=== PATIENT | female | born 1930 | race Caucasian/White ===

== ENCOUNTER 2016-06-12 09:21 | Day surgery (SDC) | payer MEDICARE, BC ==
--- OUTSIDE RECORDS SUMMARY | 2016-06-12 09:29 | XMS REPORT | Continuity of Care Document ---
:1930 Author Organization [facility] ([facility]) Address [address] [place] [address] Phone [phone] Care Team Providers Name Role Phone Unavailable Primary Care Provider Unavailable Source Comments This disclosure is being made pursuant to the Care Everywhere program, applicable federal and state laws, and may not contain all informaitonavailable regarding this patient.[facility] ([facility]) Active Allergies and Adverse Reactions Not on File Current Medications Not on file Active Problems Not on file Social History Tobacco Use Types Packs/Day Years Used Date Never Assessed Plan of Care Health Maintenance Due Date Last Done Comments Hepatitis B Vaccine (1 of 3 - Primary Series) 1930 Tdap Vaccine 1941 Lipid Disorder Screening 1948 Td Vaccine 1948 Colonoscopy 06/06/1980 Zoster Vaccine 1990 Osteoporosis Screening (DXA Bone Density) 06/08/1995 Pneumococcal Vaccine (1 of 2 - PCV13) 06/08/1995 Influenza Vaccine: Seasonal (#1) 09/23/2015 Results from Last 3 Months Not on file
--- NOTE | 2016-06-12 10:26 | OR ---
Anesthesia Pre Procedure Eval Date of Service: 06/12/16 Pre Procedure Evaluation: Last Vital Signs Temp 36.5 C 06/12/16 10:21 Pulse 71 06/12/16 10:21 Resp 18 06/12/16 10:21 BP 160/79 06/12/16 10:21 Pulse Ox 100 06/12/16 10:21 Anesthesia Pre Procedure Evaluation DATE: 06/12/2016 TIME: 1025 INDICATIONS: Low back and radicular pain PAST MEDICAL HISTORY: has had a long history of pain she has tried multimodal therapies with some relief however she occasionally reaches a point where an epidural injection appears to be the only longer-term relief intervention. She's been doing fairly well until recently. The pain is described in the back and radiating down the legs. EXAM: Heart S1 and S2 regular; lungs clear but distant bilaterally ASSESSMENT OF MEDICAL STATUS: Appropriate candidate for epidural steroid injection PLANNED PROCEDURE: Epidural injection with steroid in the lumbar area. Home Medications: HOME MEDICATIONS Albuterol Sulfate [Proair Hfa] 2 puff IH Q4H PRN 10/12/14 [Last Taken Unknown] Aspirin [Aspirin EC] 81 mg PO DAILY 10/12/14 [Last Taken Unknown] Atorvastatin Calcium 20 mg PO DAILY 10/12/14 [Last Taken Unknown] Gabapentin [Neurontin] 600 mg PO HS 10/12/14 [Last Taken Unknown] LORazepam [Ativan] 1 mg PO TID PRN 10/12/14 [Last Taken Unknown] Nebivolol HCl [Bystolic] 5 mg PO DAILY 10/12/14 [Last Taken Unknown] Omeprazole [Prilosec] 20 mg PO DAILY 10/12/14 [Last Taken Unknown] Polyethylene Glycol 3350 [Miralax] 17 gm PO DAILY 10/12/14 [Last Taken Unknown] Pyridoxine HCl (Vitamin B6) [Vitamin B-6] 100 mg PO BID 10/12/14 [Last Taken Unknown] Tolterodine Tartrate [Detrol LA] 2 mg PO DAILY 10/12/14 [Last Taken Unknown] traMADol HCL [Ultram] 50 mg PO QID PRN #30 tablet 08/21/15 [Last Taken Unknown] Albuterol Sulfate [Albuterol Sulfate 2.5 MG/3 ML] 2.5 mg IH TID PRN 06/10/16 [ Last Taken Unknown] Azithromycin [Zithromax] 500 mg PO DAILY 06/10/16 [Last Taken Unknown] Cyanocobalamin [Vitamin B-12] 1,000 mcg PO DAILY 06/10/16 [Last Taken Unknown] Fluticasone Propionate [Flonase] 1 spray NS BID 06/10/16 [Last Taken Unknown] Fluticasone Propionate [Flovent Hfa] 2 inh IH BID 06/10/16 [Last Taken Unknown] Furosemide [Lasix] 20 mg PO DAILY 06/10/16 [Last Taken Unknown] Levalbuterol Tartrate [Xopenex Hfa] 2 puff IH Q4H PRN 06/10/16 [Last Taken Unknown] Mirtazapine [Mirtazapine (Remeron)] 15 mg PO HS 06/10/16 [Last Taken Unknown] Montelukast Sodium [Singulair] 10 mg PO DAILY 06/10/16 [Last Taken Unknown] Umeclidinium [place] [Incruse Ellipta] 1 puff IH DAILY 06/10/16 [Last Taken Unknown]
[2016-06-12] MEDS ORDERED: LIDOCAINE HCL/PF 5 ML VIAL IJ ONE ×2 (10:55→11:15)
[2016-06-12] MEDS ORDERED: DEXAMETHASONE SOD PHOSPHATE 10 MG/ML VIAL IJ ONE ×2 (10:55→11:15)
[2016-06-12] MEDS ORDERED: IOPAMIDOL 20 ML VIAL IJ ONE ×2 (10:55→11:15)
--- NOTE | 2016-06-12 11:35 | OR ---
Anesthesia Procedure Note - Anesthesia Procedure Note Date of Service: 06/12/16 Narrative: Vital Signs - Last Taken Temp 36.5 C 06/12/16 10:21 Pulse 71 06/12/16 10:21 Resp 18 06/12/16 10:21 BP 160/79 06/12/16 10:21 Pulse Ox 100 06/12/16 10:21 06/12/16 1125 ANESTHESIA PROCEDURE NOTE Date of Procedure: 06/12/2016 Time of procedure: 11:00. Performed by: AVA Wiggins CRNAP, MSN Stunt Person: Janet Sifuentes RN. Preprocedure diagnosis: Multilevel degenerative disc disease, spinal stenosis, low back and bilateral radicular pain. Post procedure diagnosis: Same. Procedure: Epidural Steroid Injection L2-3. Indications: Low back and bilateral radicular pain. Findings: See below. Details of the procedure: After the MRI report and films were reviewed, the patient was interviewed where risks and the procedure were explained. The patient was then brought to or #3 and was placed in the prone position. The back was prepped with DuraPrep and draped in a sterile fashion. The lumbar area was identified under fluoroscopy and the L4 5 right space was localized with 1% lidocaine solution. After multiple passes with apparent appropriate approach to the epidural space loss of resistance was not achieved, see single view with no contrast. The left L2-3 approach was then utilized achieving a [id number] using a 20-gauge epidural needle, and 1 mL of Isovue 200 was injected. The C-arm was positioned in the lateral orientation demonstrating epidural spread. The C-arm was then readjusted to an AP view and Isovue 200 2 milliliters was injected demonstrating a spread at the affected area there was some lateral spread but confined primarily centrally. There was transient bilateral pressure parasthesias on injection. Dexamethasone 10mg and lidocaine 1 % [5ml] was injected, stylette was replaced and the epidural needle removed. A Band-Aid was then applied to the injection site, patient was placed in a [supine ] position for 5 minutes then returned to ASU with good relief of pain, from a [ 8]/10 to [0]/10. EBL: None. Energy: [45] Seconds, [13.18]mGy Fluids: N/A. Specimen: N/A. Post procedure condition: The patient tolerated the procedure well. No complications were noted. Thank you for this consultation. Zane Villalba CRNA, MSN, TRANSFER CLERK
[2016-06-12 12:02] VITALS: BP 141/73
== END 2016-06-12 09:22 | disposition home or self-care (01) ==
LOC: AMB 09:21
PROVIDERS: ATTEND Family Medicine
PROC: 3E0S3BZ Introduction of Anesthetic Agent into Epidural Space, Percutaneous Approach (ICD-10-PCS; 2016-06-12)
PROC: 3E0S33Z Introduction of Anti-inflammatory into Epidural Space, Percutaneous Approach (ICD-10-PCS; principal; 2016-06-12 10:00)
DX: M51.36 Other intervertebral disc degeneration, lumbar region (principal); M48.06 Spinal stenosis, lumbar region; Z68.28 Body mass index [BMI] 28.0-28.9, adult

== ENCOUNTER 2017-01-25 10:14 | Observation (INO) | payer MEDICARE, BC ==
[2017-01-25] MEDS ORDERED: ALBUTEROL SULFATE/IPRATROPIUM 3 ML NEBU IH ONE ×2 (10:22→11:08)
[2017-01-25] MEDS ORDERED: FUROSEMIDE 10 MG/ML VIAL IV ONE (10:23)
[2017-01-25] MEDS ORDERED: METHYLPREDNISOLONE SOD SUCC/PF 40 MG/ML VIAL IV ONE (10:24)
--- NOTE | 2017-01-25 10:31 | ERNOTE ---
Dyspnea - Date Date of Service: 01/25/17 - General Presenting Symptoms: shortness of breath Time Seen by Provider: 01/25/17 10:22 Source: patient Exam Limitations: no limitations - Immun/Allergies/Home Medications Immunizations: IMMUNIZATION HX History of Influenza Vaccine No Hx Pneumococcal Vaccination Yes Allergies/Adverse Reactions: Allergies cefdinir [From Omnicef] Allergy (Mild, Verified 01/25/17 10:25) hives, palpitations Penicillins Allergy (Mild, Verified 01/25/17 10:25) Hives doxycycline Adverse Reaction (Mild, Verified 01/25/17 10:25) rash, itching levofloxacin [From Levaquin] Adverse Reaction (Mild, Verified 01/25/17 10:25) gi upset, pain Home Medications: HOME MEDICATIONS Albuterol Sulfate [Proair Hfa] 2 puff IH Q4H PRN 10/12/14 [Last Taken Unknown] Aspirin [Aspirin EC] 81 mg PO DAILY 10/12/14 [Last Taken Unknown] Atorvastatin Calcium 20 mg PO DAILY 10/12/14 [Last Taken Unknown] Gabapentin [Neurontin] 600 mg PO HS 10/12/14 [Last Taken Unknown] LORazepam [Ativan] 1 mg PO TID PRN 10/12/14 [Last Taken 06/12/16 08:00] Nebivolol HCl [Bystolic] 5 mg PO DAILY 10/12/14 [Last Taken 06/12/16 08:00] Omeprazole [Prilosec] 20 mg PO DAILY 10/12/14 [Last Taken Unknown] Polyethylene Glycol 3350 [Miralax] 17 gm PO DAILY 10/12/14 [Last Taken Unknown] Pyridoxine HCl (Vitamin B6) [Vitamin B-6] 100 mg PO BID 10/12/14 [Last Taken Unknown] Tolterodine Tartrate [Detrol LA] 2 mg PO DAILY 10/12/14 [Last Taken Unknown] traMADol HCL [Ultram] 50 mg PO QID PRN #30 tablet 08/21/15 [Last Taken Unknown] Albuterol Sulfate [Albuterol Sulfate 2.5 MG/3 ML] 2.5 mg IH TID PRN 06/10/16 [ Last Taken Unknown] Azithromycin [Zithromax] 500 mg PO DAILY 06/10/16 [Last Taken Unknown] Cyanocobalamin [Vitamin B-12] 1,000 mcg PO DAILY 06/10/16 [Last Taken Unknown] Fluticasone Propionate [Flonase] 1 spray NS BID 06/10/16 [Last Taken Unknown] Fluticasone Propionate [Flovent Hfa] 2 inh IH BID 06/10/16 [Last Taken Unknown] Furosemide [Lasix] 20 mg PO DAILY 06/10/16 [Last Taken Unknown] Levalbuterol Tartrate [Xopenex Hfa] 2 puff IH Q4H PRN 06/10/16 [Last Taken Unknown] Mirtazapine [Mirtazapine (Remeron)] 15 mg PO HS 06/10/16 [Last Taken Unknown] Montelukast Sodium [Singulair] 10 mg PO DAILY 06/10/16 [Last Taken Unknown] Umeclidinium [place] [Incruse Ellipta] 1 puff IH DAILY 06/10/16 [Last Taken Unknown] - History of Present Illness Narrative: Pt. comes in with c/o SOB for two weeks that is worsening and this morning states that she has intermittent headache for the pat hour as well. Pt. states that sitting up decreases the symptoms and lying flat increases them but pt. denies any alleviation of symptoms completely. Pt. has a hx of CHF and COPD but has not taken any lasix or breathing treatmments since yesterday. Review of Systems - Review of Systems Constitutional: Present: weakness - generalized, fatigue. Absent: recent illness, fever, chills, malaise EYE: Present: no symptoms reported ENT: Present: no symptoms reported. Absent: nose pain, nose congestion, nasal drainage, sore throat Respiratory: Present: shortness of breath, cough Cardiology: Present: no symptoms reported. Absent: chest pain, palpitations, edema Gastrointestinal/Abdominal: Present: no symptoms reported. Absent: nausea, vomiting, diarrhea, abdominal pain Genitourinary: Present: no symptoms reported Musculoskeletal: Present: no symptoms reported. Absent: back pain, joint pain Skin: Present: no symptoms reported Neurological: Present: headache. Absent: dizziness/light-headedness, numbness, tingling All Other Systems: All systems neg except as marked - Patient's Past Medical History Patient History - Medical: Anxiety, Depression, GERD, Osteoporosis Patient History - Cancer: No Hx of Cancer Patient History - Surgical Procedures: Back Surgery, Hysterectomy Patient History - Other: None - Immunizations Hx Pneumococcal Vaccination: Yes History of Influenza Vaccine: No Physical Exam - Physical Exam General Appearance: Present: wd/wn, alert, moderate distress, other - tripod breathing Head Exam: Present: normal inspection, no evidence of injury Eye Exam: Normal inspection: bilateral, PERRL: bilateral, EOMI: bilateral Ears, Nose, Throat: Present: normal ENT inspection, normal pharynx Neck: Present: normal inspection, nontender, supple, full range of motion. Absent: lymphadenopathy (R), lymphadenopathy (L) Respiratory: Present: chest nontender, respiratory distress, decreased breath sounds - mid upper to bases, wheezing - BUL, other - very tight sounding chest . Absent: chest tenderness, crackles, rales, rhonchi, stridor Cardiovascular/Chest: Present: regular rate, rhythm, no murmur, normal peripheral pulses Gastrointestinal/Abdominal: Present: normal bowel sounds, nontender, nondistended, soft, no organomegaly Back Exam: Present: normal inspection, normal range of motion, no CVA tenderness , no vertebral tenderness Extremity Exam: Present: normal inspection, non-tender, normal range of motion, no edema Neurological Exam: Present: alert, oriented, normal mood/affect, no motor/ sensory deficits Skin Exam: Present: warm/dry, pallor. Absent: cyanosis, skin rash ED Progress - Date and Time Seen: Date and Time: 01/25/17 13:[address] Mari and as pt. is boarderline and could be discharged or admitted and pt. denies any preference will admit pt. for COPD exacerbation. - Results and Orders Patient's Lab Results:: I have reviewed the patient's lab results. - Vital Signs Patient's Vital Signs:: I have reviewed the patient's vital signs. - EKG EKG: other - SR 1st degree EKG read: Reviewed by me EKG Comments: Interp by Dr garcia - X-Ray X-Ray #1 X-Ray: chest Interpretation: Reviewed by me X-ray Comments: hyperinflation and chronic scarring no consolidation or infiltrates. - Progress/Reassessment Progress:: Improved - slightly Progress Note-Subjective: 01/25/17 13:21 Pt. still not tolerating much activity and gave her morning dose of lasix that she missed and her lung sounds are much improved but pt. states tath she still feel s bad Departure Clinical Impression: COPD exacerbation - Departure Disposition: [facility] Condition: Fair
[2017-01-25 10:45] LABS: Hemoglobin 12.2 gm/dL (12.5-16.0); Mean Cell Volume 96.3 fl (78-100); Mean Corpuscular Hemoglobin 30.1 pg (27-31); Mean Corpuscular Hgb Conc 31.3 g/dl (32-36); Mean Platelet Volume 9.8 fl (6.0-9.5); Neutrophil # 6.5 K/mm3 (1.3-6.0); Neutrophil % 73.6 % (42-75.0); Platelet Count 216 K/mm3 (150-450); Red Blood Count 4.05 M/mm3 (4.2-5.4); Red Cell Distribution Width 12.4 % (11.5-14.0); White Blood Count 8.8 K/mm3 (4.0-10.5)
[2017-01-25 11:01] LABS: Troponin I Less than 0.017 ng/ml (0.00-0.10)
[2017-01-25 11:03] LABS: ALT 28 U/L (19-67); AST 26 U/L (0-48); Albumin * 3.4 gm/dl (3.4-5.0); Alkaline Phosphatase * 75 U/L (50-170); Anion Gap 4.5 mmol/L (6.8-13.8); BNP * 461 pg/mL (5-550); BUN/Creatinine Ratio 12.9 (9.0-21.6); Bilirubin, Total 0.7 mg/dL (0.0-1.1); Blood Urea Nitrogen 11 mg/dL (3-23); Ca. Corrected For Albumin 9.8 mg/dL (8.4-10.2); Calcium * 9.6 mg/dL (7.9-10.9); Carbon Dioxide 42.6 mmol/L (24-32.6); Chloride 93 mmol/L (97-106); Glucose * 128 mg/dL (70-110); Potassium 4.1 mmol/L (3.4-4.6); Sodium 136 mmol/L (132-142); Total Protein 7.7 gm/dL (6.2-8.2)
[2017-01-25] MEDS ORDERED: NORMAL SALINE 1,000 ML IV ONE (11:14)
[2017-01-25] MEDS ORDERED: LORazepam 2 MG/ML DISP.SYRIN IV ONE (12:02)
[2017-01-25] MEDS ORDERED: METHYLPREDNISOLONE SOD SUCC/PF 40 MG/ML VIAL ONE (12:25)
[2017-01-25] MEDS ORDERED: LORazepam 2 MG/ML DISP.SYRIN ONE (12:26)
[2017-01-25] MEDS ORDERED: ALBUTEROL SULFATE 2.5 MG/0.5 ML VIAL.NEB IH PRN ×2 (13:26→18:00)
[2017-01-25] MEDS ORDERED: METHYLPREDNISOLONE SOD SUCC 80 MG in WATER FOR INJ.,BACTERIOSTATIC 0 ML IV SCH ×2 (13:30→19:00)
[2017-01-25] MEDS ORDERED: traMADol HCL 50 MG TABLET PO PRN (16:36)
[2017-01-25] MEDS ORDERED: NON-FORMULARY 1 DOSE DOSE (Levalbuterol Tartrate [Xopenex Hfa] 2 PUFF) IH PRN (16:36)
--- NOTE | 2017-01-25 16:44 | HP ---
Chief Complaint - Chief Complaint Date of Service: 01/25/17 Time of Service: 16:42 Chief Complaint: Shortness of breath, fatigue, hoarseness, sinus headache History of Present Illness: Analisa is an 86yo female that was at home with shortness of breath. reports they have a pulse oximetry and he reports it was 60% at home so he turned up her usual 3lpm of oxygen to 4lpm and it improved to 90% but would jump around to 70% to 90% so he brought her in to the ER for evaluation. She reports she has had lots of headaches, sinus drainage, and feels like there is phlegm in the back of her throat that she cannot clear. Denies sore throat. She does not feel her breathing is worse than usual. In the ER her oxygen was >90% on her usual 3lpm. She reports she has been more anxious. Lorazapam helps but she only takes a half tablet. - Patient's Past Medical History Patient History - Medical: Anxiety, Depression, GERD, Osteoporosis Patient History - Cardiac/Respiratory: COPD, Home O2 Use - Chronic Respiratory Failure 3lpm Patient History - Cancer: No Hx of Cancer Patient History - Surgical Procedures: Back Surgery, Cataracts, Hysterectomy, T & A Patient History - Other: None LMP (females 10-50): Menopausal - Family History Mother Family History - Medical: Family History - Cardiac/Respiratory: No pertinent hx Father Family History - Medical: Family History - Cardiac/Respiratory: Cardiac Arrest - Social History Living Situations: spouse Abuse History: No History of abuse Psych History: Hx of Depression Smoking Status: Current every day smoker Have you smoked in the past 12 months: Yes Do you dip or chew tobacco: No Smoking Start Date: 06/11/1952 Patient requests Smoking Cessation Consult: Yes Initiate information on Smoking Cessation: Yes Alcohol Use: none Drug Use: none - Immunizations Hx Pneumococcal Vaccination: Yes History of Influenza Vaccine: No Review Of Systems (GEN) - Review of Systems Generalized/Overall Review: Absent: Weakness, Chills, Fever EENTM: Present: Nose Congestion, Other - Hoarseness Respiratory: Present: Cough, Shortness of Breath. Absent: Orthopnea, Stridor, Wheezing Cardiac: Absent: Chest Pain, Edema, Palpitations Abdominal: Present: No Symptoms Reported Genitourinary: Present: No Symptoms Reported Musculoskeletal: Present: No Symptoms Reported Neurological: Present: Headache, Anxiety, Depressed Skin: Present: No Symptoms Reported Endocrine: Present: No Symptoms Reported Immunizations: IMMUNIZATION HX History of Influenza Vaccine No Hx Pneumococcal Vaccination Yes Allergies/Adverse Reactions: Allergies Allergy/AdvReac Type Severity Reaction Status Date / Time cefdinir [From Omnicef] Allergy Mild hives, Verified 01/25/17 10:25 palpitations Penicillins Allergy Mild Hives Verified 01/25/17 10:25 doxycycline AdvReac Mild rash, Verified 01/25/17 10:25 itching levofloxacin [From Levaquin] AdvReac Mild gi upset, Verified 01/25/17 10:25 pain Home Medications: HOME MEDICATIONS Albuterol Sulfate [Proair Hfa] 2 puff IH Q4H PRN 10/12/14 [Last Taken Unknown] Aspirin [Aspirin EC] 81 mg PO DAILY 10/12/14 [Last Taken Unknown] Atorvastatin Calcium 20 mg PO DAILY 10/12/14 [Last Taken Unknown] Gabapentin [Neurontin] 600 mg PO HS 10/12/14 [Last Taken Unknown] LORazepam [Ativan] 1 mg PO TID PRN 10/12/14 [Last Taken 06/12/16 08:00] Nebivolol HCl [Bystolic] 5 mg PO DAILY 10/12/14 [Last Taken 06/12/16 08:00] Omeprazole [Prilosec] 20 mg PO DAILY 10/12/14 [Last Taken Unknown] Polyethylene Glycol 3350 [Miralax] 17 gm PO DAILY 10/12/14 [Last Taken Unknown] Pyridoxine HCl (Vitamin B6) [Vitamin B-6] 100 mg PO BID 10/12/14 [Last Taken Unknown] Tolterodine Tartrate [Detrol LA] 2 mg PO DAILY 10/12/14 [Last Taken Unknown] traMADol HCL [Ultram] 50 mg PO QID PRN #30 tablet 08/21/15 [Last Taken Unknown] Albuterol Sulfate [Albuterol Sulfate 2.5 MG/3 ML] 2.5 mg IH TID PRN 06/10/16 [ Last Taken Unknown] Azithromycin [Zithromax] 500 mg PO DAILY 06/10/16 [Last Taken Unknown] Cyanocobalamin [Vitamin B-12] 1,000 mcg PO DAILY 06/10/16 [Last Taken Unknown] Fluticasone Propionate [Flonase] 1 spray NS BID 06/10/16 [Last Taken Unknown] Fluticasone Propionate [Flovent Hfa] 2 inh IH BID 06/10/16 [Last Taken Unknown] Furosemide [Lasix] 20 mg PO DAILY 06/10/16 [Last Taken Unknown] Levalbuterol Tartrate [Xopenex Hfa] 2 puff IH Q4H PRN 06/10/16 [Last Taken Unknown] Mirtazapine [Mirtazapine (Remeron)] 15 mg PO HS 06/10/16 [Last Taken Unknown] Montelukast Sodium [Singulair] 10 mg PO DAILY 06/10/16 [Last Taken Unknown] Umeclidinium [place] [Incruse Ellipta] 1 puff IH DAILY 06/10/16 [Last Taken Unknown] Exam - Exam Vital Signs: Vital Signs - Last Taken Temp 36.4 C L 01/25/17 14:46 Pulse 81 01/25/17 14:46 Resp 20 01/25/17 14:46 BP 168/57 01/25/17 14:46 Pulse Ox 97 01/25/17 14:46 Constitutional: Present: Alert, Oriented x3, Cooperative ENT Exam: Present: hearing grossly normal, muffled/hoarse voice, other - Frontal sinuses tender to palpation bilaterally Eye Exam: bilateral eye: normal inspection Respiratory: Present: decreased breath sounds Cardiovascular/Chest: Present: regular rate, rhythm, no chest tenderness, no edema, no murmur Abdomen: Present: Normal bowel sounds, soft, nontender, nondistended, no rebound tenderness Extremity: Present: normal inspection, no pedal edema Skin Exam: Present: normal color, warm/dry, no cyanosis Neurologic: Present: no motor/sensory deficits, alert, normal mood/affect, oriented x 3 Diagnostic Studies: Laboratory Results WBC 8.8 K/mm3 (4.0-10.5) 01/25/17 10:22 RBC 4.05 M/mm3 (4.2-5.4) L 01/25/17 10:22 Hgb 12.2 gm/dL (12.5-16.0) L 01/25/17 10:22 Hct 39.0 % (37.0-47.0) 01/25/17 10:22 MCV 96.3 fl (78-100) 01/25/17 10:22 MCH 30.1 pg (27-31) 01/25/17 10:22 MCHC 31.3 g/dl (32-36) L 01/25/17 10:22 RDW 12.4 % (11.5-14.0) 01/25/17 10:22 Plt Count 216 K/mm3 (150-450) 01/25/17 10:22 MPV 9.8 fl (6.0-9.5) H 01/25/17 10:22 Immature Gran % (Auto) 0.30 % (0.001-0.429) 01/25/17 10:22 Immature Gran # (Auto) 0.03 K/mm3 (0.000-0.0310) 01/25/17 10:22 Neutrophils % 73.6 % (42-75.0) 01/25/17 10:22 Lymphocytes % 16.0 % (20-51) L 01/25/17 10:22 Monocytes % 8.4 % (0.0-9) 01/25/17 10:22 Eosinophils % 1.4 % (0.0-3.0) 01/25/17 10:22 Basophils % 0.3 % (0.0-1.0) 01/25/17 10:22 Nucleated RBC % 0.0 k/mm3 (0-1) 01/25/17 10:22 Neutrophils # 6.5 K/mm3 (1.3-6.0) H 01/25/17 10:22 Lymphocytes # 1.4 k/mm3 (1.5-3.5) L 01/25/17 10:22 Monocytes # 0.7 k/mm3 (0.0-1.0) 01/25/17 10:22 Eosinophils # 0.1 k/mm3 (0.0-0.7) 01/25/17 10:22 Absolute Basophils 0.0 k/mm3 (0.0-0.1) 01/25/17 10:22 pCO2 53.4 mmHg (32.0-45.0) H 01/25/17 10:22 pO2 126.8 mmHg (83.0-108.0) H 01/25/17 10:22 HCO3 31.8 mmol/L (21.0-28.0) H 01/25/17 10:22 Total CO2 33.5 mmol/L (19.0-24.0) H 01/25/17 10:22 Base Excess 5.8 mmol/L (-2.0-3.0) H 01/25/17 10:22 ABG pH 7.39 (7.35-7.45) 01/25/17 10:22 ABG O2 Sat (Measured) 98.4 % (94.0-98.0) H 01/25/17 10:22 Sodium 136 mmol/L (132-142) 01/25/17 10:22 Plasma Sodium 136 mmol/L (130-142) 01/25/17 10:22 Potassium 4.1 mmol/L (3.4-4.6) 01/25/17 10:22 Chloride 93 mmol/L (97-106) L 01/25/17 10:22 Carbon Dioxide 42.6 mmol/L (24-32.6) H 01/25/17 10:22 Anion Gap 4.5 mmol/L (6.8-13.8) L 01/25/17 10:22 BUN 11 mg/dL (3-23) 01/25/17 10:22 Creatinine 0.85 mg/dL (0.4-1.4) 01/25/17 10:22 Est GFR (Non-Af Amer) 67 mL/min (60-130) 01/25/17 10:22 BUN/Creatinine Ratio 12.9 (9.0-21.6) 01/25/17 10:22 Random Glucose 128 mg/dL (70-110) H 01/25/17 10:22 Calcium 9.6 mg/dL (7.9-10.9) 01/25/17 10:22 Calcium Adj for Albumin 9.8 mg/dL (8.4-10.2) 01/25/17 10:22 Total Bilirubin 0.7 mg/dL (0.0-1.1) 01/25/17 10:22 AST 26 U/L (0-48) 01/25/17 10:22 ALT 28 U/L (19-67) 01/25/17 10:22 Alkaline Phosphatase 75 U/L (50-170) 01/25/17 10:22 Troponin I Less than 0.017 ng/ml (0.00-0.10) 01/25/17 10:22 B-Natriuretic Peptide 461 pg/mL (5-550) 01/25/17 10:22 Total Protein 7.7 gm/dL (6.2-8.2) 01/25/17 10:22 Albumin 3.4 gm/dl (3.4-5.0) 01/25/17 10:22 Assessment/Plan - Assessment/Plan (1) Acute and chronic respiratory failure with hypoxia Assessment: Analisa will be admitted to observation for possible acute on chronic respiratory failure with hypoxia. This is based on reported home oxygen of 60% on her 3lpm. There has been no evidence of acute respiratory failure in the ER as she has been >90% on her 3lpm. I believe she has sinusitis and bronchitis and she potentially had a mucus plug that caused acute respiratory failure at home that has now cleared. Will therefore admit to observation to monitor her oxygen needs. Will treat sinusitis and bronchitis with prednisone and clindamycin. Problem: Acute (2) Acute frontal sinusitis Assessment: Will treat with prednisone 40mg daily x 7 days and clindamycin 300mg QID x 10 days. Problem: Acute (3) COPD (chronic obstructive pulmonary disease) Problem: Acute (4) Generalized anxiety disorder Assessment: Reports symptoms uncontrolled. Will increase remeron from 15 to 30mg HS. She normally takes 0.5mg of lorazapam prn, will try increasing this to 1mg prn. Problem: Acute
[2017-01-25] MEDS: CLINDAMYCIN HCL 150 MG CAPSULE PO SCH ×2 (16:59→22:58)
[2017-01-25] MEDS: ACETAMINOPHEN 500 MG TABLET PO PRN ×2 (16:59→22:59)
[2017-01-25] MEDS: POLYETHYLENE GLYCOL 3350 119 GM BTL PO SCH (17:00)
[2017-01-25] MEDS: ALBUTEROL SULFATE/IPRATROPIUM 3 ML NEBU IH SCH (18:18)
[2017-01-25] MEDS: BUDESONIDE 0.5 MG/2 ML VIAL.NEB IH SCH (18:18)
[2017-01-25] MEDS: LORazepam 1 MG TABLET PO PRN (20:11)
[2017-01-25] MEDS: FLUTICASONE PROPIONATE 120 SPRAY INHALER NS SCH (20:12)
[2017-01-25] MEDS ORDERED: GABAPENTIN 600 MG TABLET PO SCH (21:00)
[2017-01-25] MEDS ORDERED: MIRTAZAPINE 15 MG TABLET PO SCH ×2 (21:00)
[2017-01-25] MEDS ORDERED: ROSUVASTATIN CALCIUM 10 MG TABLET PO SCH (21:00)
[2017-01-25] MEDS ORDERED: MONTELUKAST SODIUM 10 MG TABLET PO SCH (21:00)
[2017-01-26] MEDS: ALBUTEROL SULFATE/IPRATROPIUM 3 ML NEBU IH SCH ×3 (01:14→13:14)
[2017-01-26] MEDS: CLINDAMYCIN HCL 150 MG CAPSULE PO SCH ×2 (05:05→10:23)
[2017-01-26] MEDS: BUDESONIDE 0.5 MG/2 ML VIAL.NEB IH SCH (06:19)
[2017-01-26] MEDS ORDERED: PANTOPRAZOLE SODIUM 20 MG TABLET.DR PO SCH (07:00)
[2017-01-26] MEDS: POLYETHYLENE GLYCOL 3350 119 GM BTL PO SCH (08:25)
[2017-01-26] MEDS: FLUTICASONE PROPIONATE 120 SPRAY INHALER NS SCH (08:25)
[2017-01-26] MEDS ORDERED: AZITHROMYCIN 250 MG TABLET PO SCH (09:00)
[2017-01-26] MEDS ORDERED: predniSONE 20 MG TABLET PO SCH (09:00)
[2017-01-26] MEDS ORDERED: TOLTERODINE TARTRATE 2 MG CAPSULE PO SCH (09:00)
[2017-01-26] MEDS ORDERED: FUROSEMIDE 20 MG TABLET PO SCH (09:00)
[2017-01-26] MEDS ORDERED: TIOTROPIUM BROMIDE 5 CAP INHALER IH SCH (09:00)
[2017-01-26] MEDS ORDERED: ASPIRIN 81 MG TABLET.DR PO SCH (09:00)
[2017-01-26] MEDS ORDERED: CYANOCOBALAMIN 1,000 MCG TABLET PO SCH (09:00)
[2017-01-26] MEDS: LORazepam 1 MG TABLET PO PRN (10:23)
[2017-01-26 11:16] VITALS: BP 142/54
--- NOTE | 2017-01-26 13:03 | DS ---
(1) Acute and chronic respiratory failure with hypoxia Problem: Acute (2) Acute frontal sinusitis Problem: Acute (3) COPD (chronic obstructive pulmonary disease) Problem: Acute Qualifiers: COPD type: emphysema (4) Generalized anxiety disorder Problem: Acute (5) Depression Problem: Acute Description of Stay: Analisa is an 86 yo female with Chronic respiratory failure from COPD. She was reportedly 70% at home at rest on her usual 3lpm NC. She reported worse shortness of breath. In the ER and throughout hospital course her oxygen saturation has always been >90% on her usual 3lpm via NC. She was admitted for observation because of this reported hypoxia. It is possible that she cleared a mucus plug that caused an episode of acute on chronic respiratory failure. Clinically she appeared to have a sinus infection that may have contributed but there was no evidence of COPD exacerbation. As her respiratory status appears to be at baseline she will be discharged to home with antibiotics for sinusitis. She also reported worsening depression. Will start Cymbalta for depression and chronic pain. Procedures Performed: none Discharge Disposition: Home self care Disposition: Home self-care Condition: Fair Discharge Activity: Activity as tolerated Discharge Diet: General/regular food Referrals: Narciso Mari DO [Primary Care Provider] - Problem Oriented Discharge Instructions to Patient/Family: Sinusitis, Adult, [id number] Additional Patient Instructions (free text): Please fax discharge summary and orders to [facility] Please follow-up with Dr. Mari on 02/02/17 at 10:00 am. Prescriptions (Any new or edited meds): Duloxetine HCl [Cymbalta] 30 mg PO DAILY #30 capsule. Complete Home Medications List: Complete Home Medication List: Albuterol Sulfate [Proair Hfa] 2 puff IH Q4H PRN 10/12/14 Aspirin [Aspirin EC] 81 mg PO DAILY 10/12/14 Atorvastatin Calcium 20 mg PO HS 10/12/14 Gabapentin [Neurontin] 600 mg PO HS 10/12/14 LORazepam [Ativan] 1 mg PO Q8H PRN 10/12/14 Nebivolol HCl [Bystolic] 5 mg PO DAILY 10/12/14 Omeprazole [Prilosec] 20 mg PO DAILY 10/12/14 Polyethylene Glycol 3350 [Miralax] 17 gm PO DAILY PRN 10/12/14 Pyridoxine HCl (Vitamin B6) [Vitamin B-6] 100 mg PO BID 10/12/14 Tolterodine Tartrate [Detrol LA] 2 mg PO DAILY 10/12/14 Albuterol Sulfate [Albuterol Sulfate 2.5 MG/3 ML] 2.5 mg IH TID PRN 06/10/16 Azithromycin [Zithromax] 500 mg PO DAILY 06/10/16 Cyanocobalamin [Vitamin B-12] 1,000 mcg PO DAILY 06/10/16 Fluticasone Propionate [Flonase] 1 spray NS BID 06/10/16 Furosemide [Lasix] 20 mg PO DAILY 06/10/16 Montelukast Sodium [Singulair] 10 mg PO DAILY 06/10/16 Umeclidinium [place] [Incruse Ellipta] 1 puff IH DAILY 06/10/16 Duloxetine HCl [Cymbalta] 30 mg PO DAILY #30 capsule. 01/26/17 Acetaminophen 1,000 mg PO Q8H PRN 02/05/17 Clindamycin HCl [Cleocin] 300 mg PO QID 02/05/17 Lactobacillus Combo No.10 [Probiotic] 1 each PO DAILY 02/05/17 Melatonin 5 mg PO HS 02/05/17 guaiFENesin [Mucinex] 1,200 mg PO BID 02/05/17 traMADol HCL [Ultram] 50 mg PO Q6H PRN 02/05/17
== END 2017-01-26 14:10 | disposition home health service (06) ==
LOC: ER 10:14 → MS 13:21
PROVIDERS: ADMIT Family Medicine; ATTEND Family Medicine
DX: J96.21 Acute and chronic respiratory failure with hypoxia (principal); J44.1 Chronic obstructive pulmonary disease with (acute) exacerbation; J43.9 Emphysema, unspecified; J01.10 Acute frontal sinusitis, unspecified; F17.200 Nicotine dependence, unspecified, uncomplicated; F41.1 Generalized anxiety disorder; F32.9 Major depressive disorder, single episode, unspecified
CPT/HCPCS: 36415; 36600; 71020; 80053; 82803; 83880; 84484; 85025; 87040; 93005; 94640; 94760; 96374; 96375; 99285; G0378

== ENCOUNTER 2017-02-05 02:41 | Inpatient (IN) | payer MEDICARE, BC ==
[2017-02-05] MEDS ORDERED: NORMAL SALINE 1,000 ML IV ONE (03:00)
[2017-02-05 03:11] LABS: Hematocrit 36.1 % (37.0-47.0); Hemoglobin 11.5 gm/dL (12.5-16.0); Mean Corpuscular Hemoglobin 29.6 pg (27-31); Mean Corpuscular Hgb Conc 31.9 g/dl (32-36); Mean Platelet Volume 10.1 fl (6.0-9.5); Neutrophil # 6.5 K/mm3 (1.3-6.0); Neutrophil % 67.5 % (42-75.0); Platelet Count 173 K/mm3 (150-450); Red Blood Count 3.88 M/mm3 (4.2-5.4); Red Cell Distribution Width 12.3 % (11.5-14.0); White Blood Count 9.6 K/mm3 (4.0-10.5)
[2017-02-05 03:29] LABS: ALT 35 U/L (19-67); AST 29 U/L (0-48); Albumin * 3.3 gm/dl (3.4-5.0); Alkaline Phosphatase * 63 U/L (50-170); Anion Gap 1.2 mmol/L (6.8-13.8); Bilirubin, Total 0.8 mg/dL (0.0-1.1); Blood Urea Nitrogen 10 mg/dL (3-23); Ca. Corrected For Albumin 9.6 mg/dL (8.4-10.2); Calcium * 9.4 mg/dL (7.9-10.9); Carbon Dioxide 43.9 mmol/L (24-32.6); Chloride 88 mmol/L (97-106); Glucose * 109 mg/dL (70-110); Potassium 4.1 mmol/L (3.4-4.6); Sodium 129 mmol/L (132-142); Total Protein 6.8 gm/dL (6.2-8.2); Troponin I Less than 0.017 ng/ml (0.00-0.10)
[2017-02-05 03:42] LABS: Urine Bilirubin Negative (NEGATIVE); Urine Blood Negative /ul (NEGATIVE); Urine Ketone Negative (NEGATIVE); Urine Protein Negative (NEGATIVE); Urine Specific Gravity <=1.005 SP.GR. (1.005-1.010); Urine Urobilinogen Normal (NORMAL); Urine pH 7.5 pH (5.0-7.0)
[2017-02-05 03:44] LABS: Urine Appearance Slightly Cloudy; Urine Bacteria 4+; Urine Color Pale Yellow; Urine Nitrite Positive (NEGATIVE); Urine RBC 0-5 /hpf (0-5)
[2017-02-05] MEDS ORDERED: ALBUTEROL SULFATE 2.5 MG/0.5 ML VIAL.NEB IH ONE ×2 (04:18→04:25)
[2017-02-05] MEDS ORDERED: FUROSEMIDE 10 MG/ML VIAL IV ONE (06:39)
[2017-02-05] MEDS ORDERED: FUROSEMIDE 10 MG/ML VIAL ONE (06:48)
--- NOTE | 2017-02-05 06:54 | ERNOTE ---
Medical Problem HPI - Narrative Date of Service: 02/05/17 - General Chief Complaint: General Assessment Time Seen by Provider: 02/05/17 02:49 Source: patient Exam Limitations: no limitations - Immun/Allergies/Home Medications Immunizations: IMMUNIZATION HX Immunizations Up to Date Yes History of Influenza Vaccine Yes Hx Pneumococcal Vaccination Yes Allergies/Adverse Reactions: Allergies cefdinir [From Omnicef] Allergy (Mild, Verified 02/05/17 02:52) hives, palpitations Penicillins Allergy (Mild, Verified 02/05/17 02:52) Hives doxycycline Adverse Reaction (Mild, Verified 02/05/17 02:52) rash, itching levofloxacin [From Levaquin] Adverse Reaction (Mild, Verified 02/05/17 02:52) gi upset, pain Home Medications: HOME MEDICATIONS Albuterol Sulfate [Proair Hfa] 2 puff IH Q4H PRN 10/12/14 [Last Taken Unknown] Aspirin [Aspirin EC] 81 mg PO DAILY 10/12/14 [Last Taken Unknown] Atorvastatin Calcium 20 mg PO DAILY 10/12/14 [Last Taken Unknown] Gabapentin [Neurontin] 600 mg PO HS 10/12/14 [Last Taken Unknown] LORazepam [Ativan] 1 mg PO TID PRN 10/12/14 [Last Taken 06/12/16 08:00] Nebivolol HCl [Bystolic] 5 mg PO DAILY 10/12/14 [Last Taken 06/12/16 08:00] Omeprazole [Prilosec] 20 mg PO DAILY 10/12/14 [Last Taken Unknown] Polyethylene Glycol 3350 [Miralax] 17 gm PO DAILY PRN 10/12/14 [Last Taken Unknown] Pyridoxine HCl (Vitamin B6) [Vitamin B-6] 100 mg PO BID 10/12/14 [Last Taken Unknown] Tolterodine Tartrate [Detrol LA] 2 mg PO DAILY 10/12/14 [Last Taken Unknown] traMADol HCL [Ultram] 50 mg PO QID PRN #30 tablet 08/21/15 [Last Taken Unknown] Albuterol Sulfate [Albuterol Sulfate 2.5 MG/3 ML] 2.5 mg IH TID PRN 06/10/16 [ Last Taken Unknown] Azithromycin [Zithromax] 500 mg PO DAILY 06/10/16 [Last Taken Unknown] Cyanocobalamin [Vitamin B-12] 1,000 mcg PO DAILY 06/10/16 [Last Taken Unknown] Fluticasone Propionate [Flonase] 1 spray NS BID 06/10/16 [Last Taken Unknown] Fluticasone Propionate [Flovent Hfa] 2 inh IH BID 06/10/16 [Last Taken Unknown] Furosemide [Lasix] 20 mg PO DAILY 06/10/16 [Last Taken Unknown] Montelukast Sodium [Singulair] 10 mg PO DAILY 06/10/16 [Last Taken Unknown] Umeclidinium [place] [Incruse Ellipta] 1 puff IH DAILY 06/10/16 [Last Taken Unknown] Clindamycin HCl [Cleocin] 300 mg PO Q6H #80 capsule 01/26/17 [Last Taken Unknown ] Duloxetine HCl [Cymbalta] 30 mg PO DAILY #30 capsule. 01/26/17 [Last Taken Unknown] guaiFENesin [Mucinex] 1,200 mg PO BID #30 tablet.sa 01/26/17 [Last Taken Unknown ] Acetaminophen 500 mg PO Q8H PRN 02/05/17 [Last Taken Unknown] Fexofenadine HCl 180 mg PO DAILY 02/05/17 [Last Taken Unknown] Lactobacillus Combo No.10 [Probiotic] 1 each PO DAILY 02/05/17 [Last Taken Unknown] Melatonin 5 mg PO HS 02/05/17 [Last Taken Unknown] - History of Present History Narrative: states that patient has had increased confusion , recent admission for copd exacervbtion Timing: constant, getting worse Severity: moderate - no improvement Review of Systems - Narrative Narrative: patient has had a declining state for last several months - Review of Systems Constitutional: Present: See HPI, recent illness, weakness, fatigue, malaise EYE: Present: no symptoms reported ENT: Present: no symptoms reported Respiratory: Present: See HPI, shortness of breath, cough Cardiology: Present: no symptoms reported Gastrointestinal/Abdominal: Present: no symptoms reported Genitourinary: Present: frequency, dysuria Musculoskeletal: Present: no symptoms reported Skin: Present: no symptoms reported Neurological: Present: See HPI, depressed, dizziness/light-headedness Endocrine: Present: no symptoms reported Hematologic/Lymphatic: Present: no symptoms reported Psych: Present: no symptoms reported All Other Systems: All systems neg except as marked - Narrative Narrative: patient admitted recently with copd exacerbation - Patient's Past Medical History Patient History - Medical: Anxiety, Depression, GERD, Osteoporosis Patient History - Cardiac/Respiratory: COPD, Home O2 Use Patient History - Cancer: No Hx of Cancer Patient History - Surgical Procedures: Back Surgery, Cataracts, Hysterectomy, T & A Patient History - Other: None LMP (females 10-50): Menopausal - Family History Family History:: no untoward family reactions to anesthesia, no familial bleeding tendencies, no family history of clotting disorders, no family history of premature - Family History Mother Family History - Medical: Family History - Cardiac/Respiratory: No pertinent hx Family History - Cancer: No pertinent family hx Father Family History - Medical: Family History - Cardiac/Respiratory: Cardiac Arrest, CHF, COPD Family History - Cancer: No pertinent family hx - Social History Living Situations: home Abuse History: No History of abuse Psych History: Hx of Depression Smoking Status: Current every day smoker Have you smoked in the past 12 months: No Do you dip or chew tobacco: No Patient requests Smoking Cessation Consult: No Initiate information on Smoking Cessation: No Alcohol Use: none Drug Use: none - Immunizations Immunizations Up to Date: Yes Hx Pneumococcal Vaccination: Yes History of Influenza Vaccine: Yes Physical Exam - Physical Exam General Appearance: Present: mild distress Head Exam: Present: normal inspection, no evidence of injury Eye Exam: Normal inspection: bilateral, PERRL: bilateral, EOMI: bilateral Ears, Nose, Throat: Present: normal ENT inspection Neck: Present: normal inspection, nontender Respiratory: Present: respiratory distress, rales, rhonchi Cardiovascular/Chest: Present: regular rate, rhythm, no murmur, normal peripheral pulses Peripheral Pulses: N=norm/S=strong/W=weak/B=bound/A=absent: Carotid (R): Normal , Carotid (L): Normal, Radial (R): Normal, Radial (L): Normal, Femoral (R): Normal, Femoral (L): Normal, Dorsalis-pedis (R): Normal, Dorsalis-pedis (L): Normal Gastrointestinal/Abdominal: Present: normal bowel sounds, nontender, nondistended, soft, no organomegaly Back Exam: Present: normal inspection, normal range of motion, no CVA tenderness , no vertebral tenderness Extremity Exam: Present: normal inspection, non-tender, normal range of motion, no edema Neurological Exam: Present: alert, oriented, normal mood/affect, no motor/ sensory deficits DTR: N=norm/NB=norm/brisk/A=abs/DD=dull/dimin/HC=hyperactive: Bicep (R): Normal , Bicep (L): Normal, Tricep (R): Normal, Tricep (L): Normal, Knee (R): Normal, Knee (L): Normal, Ankle (R): Normal, Ankle (L): Normal Skin Exam: Present: normal color, warm/dry Lymphatic Exam: Present: no adenopathy ED Progress - Date and Time Seen: Date and Time: 02/05/17 06:46 patient unchanged, case discussed with sylvia inpatient care manager rn accepted for admission - Results and Orders Patient's Lab Results:: I have reviewed the patient's lab results. - Vital Signs Patient's Vital Signs:: I have reviewed the patient's vital signs. Vital Signs: Vital Signs 02/05/17 02/05/17 02/05/17 02:45 03:36 03:43 Temperature 36.6 C Pulse Rate 79 80 79 Respiratory 20 22 H 22 H Rate Blood Pressure 186/61 177/61 O2 Sat by Pulse 96 90 91 Oximetry 02/05/17 02/05/17 02/05/17 03:58 04:24 04:26 Temperature Pulse Rate 75 90 Respiratory 22 H 24 H Rate Blood Pressure 181/58 202/64 O2 Sat by Pulse 90 90 90 Oximetry 02/05/17 02/05/17 04:48 05:47 Temperature Pulse Rate 93 93 Respiratory 24 H 24 H Rate Blood Pressure 186/63 211/76 O2 Sat by Pulse 91 95 Oximetry - X-Ray X-Ray #1 X-Ray: chest - interstitial edema - CT/Ultrasound CT/Ultrasound Narrative: ct head no acute process - Progress/Reassessment Chief Complaint: General Assessment Progress:: Unchanged - Transfer of Care Expected Disposition: Admit - case discussed with hospitalist accepted for admission Plan - Plan Plan: to admit Departure Clinical Impression: UTI (urinary tract infection), CHF (congestive heart failure) - Departure Disposition: [facility] Condition: Serious Referrals: Narciso Mari DO [Primary Care Provider] -
[2017-02-05] MEDS ORDERED: LORazepam 1 MG TABLET PO PRN (08:07)
[2017-02-05] MEDS ORDERED: LORazepam 2 MG/ML DISP.SYRIN IV ONE (08:40)
[2017-02-05] MEDS: ACETAMINOPHEN 500 MG TABLET PO PRN (08:52)
[2017-02-05] MEDS ORDERED: DULoxetine HCL 30 MG CAPSULE.SA PO SCH (09:00)
[2017-02-05] MEDS: CYANOCOBALAMIN 1,000 MCG TABLET PO SCH (11:50)
[2017-02-05] MEDS: ASPIRIN 81 MG TABLET.DR PO SCH (11:50)
[2017-02-05] MEDS: LACTOBACILLUS ACIDOPHILUS 100 CAP BTL PO SCH (11:50)
[2017-02-05] MEDS: FLUTICASONE PROPIONATE 120 SPRAY INHALER NS SCH ×2 (11:50→20:54)
[2017-02-05] MEDS: SULFAMETHOXAZOLE/TRIMETHOPRIM 1 TAB TABLET PO SCH ×2 (11:50→20:56)
[2017-02-05] MEDS: TOLTERODINE TARTRATE 2 MG CAPSULE PO SCH (11:51)
[2017-02-05] MEDS: NORMAL SALINE 1,000 ML IV PRN (11:56)
[2017-02-05] MEDS: DULoxetine HCL 30 MG CAPSULE.SA PO SCH (12:13)
--- NOTE | 2017-02-05 17:21 | HP ---
Chief Complaint - Chief Complaint Date of Service: 02/05/17 Time of Service: 09:30 Chief Complaint: Confusion, weakness History of Present Illness: Analisa is an 86 yo female with Chronic respiratory failure secondary to COPD using 3lpm via nasal canula continuously. Over the past few months family reports she has been getting more depressed and not eating or taking her medications consistently. She was recently started on Cymbalta to help with depression but there has not been any improvement after a week. Over the last day she has become more restless and confused. reports she has not slept for two days. She was brought to the ER today for evaluation. She was dyspneic, but not hypoxic on her 3lpm. She was anxious and restless. She had blood gases that showed elevated pCO2 to 70 which is higher than her normal. pH was well compensated and normal. She had a chest xray that showed some pulmonary congestion and a urine that showed evidence of UTI. She was placed on a bipap due to worsening pCO2 from her baseline but this made her more anxious. Bipap was removed and she was given IV ativan which helped to relax her. She reports that she is ready to give up and does not want to continue living. She reports wanting hospice. - Patient's Past Medical History Patient History - Medical: Anxiety, Depression, GERD, Osteoporosis Patient History - Cardiac/Respiratory: COPD, Home O2 Use Patient History - Cancer: No Hx of Cancer Patient History - Surgical Procedures: Back Surgery, Cataracts, Hysterectomy, T & A Patient History - Other: None LMP (females 10-50): Menopausal - Family History Family History:: no untoward family reactions to anesthesia, no familial bleeding tendencies, no family history of clotting disorders, no family history of premature - Family History Mother Family History - Medical: Family History - Cardiac/Respiratory: No pertinent hx Family History - Cancer: No pertinent family hx Father Family History - Medical: Family History - Cardiac/Respiratory: Cardiac Arrest, CHF, COPD Family History - Cancer: No pertinent family hx Sister Family History - Medical: , Arthritis Family History - Cardiac/Respiratory: No pertinent hx Family History - Cancer: No pertinent family hx - Social History Living Situations: spouse Abuse History: No History of abuse Psych History: Hx of Anxiety, Hx of Depression, Current tx/ever been on anti- depressants or anti-anxiety meds Smoking Status: Current every day smoker Have you smoked in the past 12 months: Yes Do you dip or chew tobacco: No Patient requests Smoking Cessation Consult: No Initiate information on Smoking Cessation: No Alcohol Use: none Drug Use: none - Immunizations Immunizations Up to Date: Yes Hx Pneumococcal Vaccination: Yes History of Influenza Vaccine: Yes Review Of Systems (GEN) - Review of Systems Generalized/Overall Review: Present: Weakness. Absent: Chills, Fever EENTM: Present: No Symptoms Reported Respiratory: Present: Cough, Shortness of Breath, Wheezing Cardiac: Present: No Symptoms Reported Abdominal: Present: No Symptoms Reported, Other - Dysphagia Genitourinary: Present: No Symptoms Reported Musculoskeletal: Present: No Symptoms Reported Neurological: Present: Emotional Problems, Tremors, Weakness Immunizations: IMMUNIZATION HX Immunizations Up to Date Yes History of Influenza Vaccine Yes Hx Pneumococcal Vaccination Yes Allergies/Adverse Reactions: Allergies Allergy/AdvReac Type Severity Reaction Status Date / Time cefdinir [From Omnicef] Allergy Mild hives, Verified 02/05/17 07:35 palpitations Penicillins Allergy Mild Hives Verified 02/05/17 07:35 doxycycline AdvReac Mild rash, Verified 02/05/17 07:35 itching levofloxacin [From Levaquin] AdvReac Mild gi upset, Verified 02/05/17 07:35 pain Home Medications: HOME MEDICATIONS Albuterol Sulfate [Proair Hfa] 2 puff IH Q4H PRN 10/12/14 [Last Taken Unknown] Aspirin [Aspirin EC] 81 mg PO DAILY 10/12/14 [Last Taken Unknown] Atorvastatin Calcium 20 mg PO HS 10/12/14 [Last Taken Unknown] Gabapentin [Neurontin] 600 mg PO HS 10/12/14 [Last Taken Unknown] LORazepam [Ativan] 1 mg PO Q8H PRN 10/12/14 [Last Taken 06/12/16 08:00] Nebivolol HCl [Bystolic] 5 mg PO DAILY 10/12/14 [Last Taken 06/12/16 08:00] Omeprazole [Prilosec] 20 mg PO DAILY 10/12/14 [Last Taken Unknown] Polyethylene Glycol 3350 [Miralax] 17 gm PO DAILY PRN 10/12/14 [Last Taken Unknown] Pyridoxine HCl (Vitamin B6) [Vitamin B-6] 100 mg PO BID 10/12/14 [Last Taken Unknown] Tolterodine Tartrate [Detrol LA] 2 mg PO DAILY 10/12/14 [Last Taken Unknown] Albuterol Sulfate [Albuterol Sulfate 2.5 MG/3 ML] 2.5 mg IH TID PRN 06/10/16 [ Last Taken Unknown] Azithromycin [Zithromax] 500 mg PO DAILY 06/10/16 [Last Taken Unknown] Cyanocobalamin [Vitamin B-12] 1,000 mcg PO DAILY 06/10/16 [Last Taken Unknown] Fluticasone Propionate [Flonase] 1 spray NS BID 06/10/16 [Last Taken Unknown] Furosemide [Lasix] 20 mg PO DAILY 06/10/16 [Last Taken Unknown] Montelukast Sodium [Singulair] 10 mg PO DAILY 06/10/16 [Last Taken Unknown] Umeclidinium [place] [Incruse Ellipta] 1 puff IH DAILY 06/10/16 [Last Taken Unknown] Duloxetine HCl [Cymbalta] 30 mg PO DAILY #30 capsule. 01/26/17 [Last Taken Unknown] Acetaminophen 1,000 mg PO Q8H PRN 02/05/17 [Last Taken Unknown] Clindamycin HCl [Cleocin] 300 mg PO QID 02/05/17 [Last Taken Unknown] Lactobacillus Combo No.10 [Probiotic] 1 each PO DAILY 02/05/17 [Last Taken Unknown] Melatonin 5 mg PO HS 02/05/17 [Last Taken Unknown] guaiFENesin [Mucinex] 1,200 mg PO BID 02/05/17 [Last Taken Unknown] traMADol HCL [Ultram] 50 mg PO Q6H PRN 02/05/17 [Last Taken Unknown] Exam - Exam Vital Signs: Vital Signs - Last Taken Temp 36.4 C L 02/05/17 15:00 Pulse 82 02/05/17 15:00 Resp 18 02/05/17 15:00 BP 165/73 02/05/17 15:00 Pulse Ox 96 02/05/17 15:00 Constitutional: Present: Alert, Oriented x3, Cooperative ENT Exam: Present: hard of hearing Eye Exam: bilateral eye: normal inspection Respiratory: Present: decreased breath sounds - Bilateral bases, wheezing Cardiovascular/Chest: Present: tachycardia, systolic murmur - 2+ Abdomen: Present: Normal bowel sounds, soft, nontender, nondistended, no rebound tenderness, no hepatospenomegaly, no masses Skin Exam: Present: normal color, warm/dry, no cyanosis Neurologic: Present: alert, oriented x 3, other - tearful Appearance: Present: appropriate appearance, appropriate insight, neat Eye contact: Present: cooperative, normal speech Diagnostic Studies: Abnormal Lab Results 02/05/17 Range/Units 13:03 pCO2 62.4 H (32.0-45.0) mmHg pO2 76.6 L (83.0-108.0) mmHg HCO3 38.0 H (21.0-28.0) mmol/L Total CO2 40.0 H (19.0-24.0) mmol/L Base Excess 11.1 H (-2.0-3.0) mmol/L Laboratory Results WBC 9.6 K/mm3 (4.0-10.5) 02/05/17 03:10 RBC 3.88 M/mm3 (4.2-5.4) L 02/05/17 03:10 Hgb 11.5 gm/dL (12.5-16.0) L 02/05/17 03:10 Hct 36.1 % (37.0-47.0) L 02/05/17 03:10 MCV 93.0 fl (78-100) 02/05/17 03:10 MCH 29.6 pg (27-31) 02/05/17 03:10 MCHC 31.9 g/dl (32-36) L 02/05/17 03:10 RDW 12.3 % (11.5-14.0) 02/05/17 03:10 Plt Count 173 K/mm3 (150-450) 02/05/17 03:10 MPV 10.1 fl (6.0-9.5) H 02/05/17 03:10 Immature Gran % (Auto) 0.60 % (0.001-0.429) H 02/05/17 03:10 Immature Gran # (Auto) 0.06 K/mm3 (0.000-0.0310) H 02/05/17 03:10 Neutrophils % 67.5 % (42-75.0) 02/05/17 03:10 Lymphocytes % 19.5 % (20-51) L 02/05/17 03:10 Monocytes % 10.1 % (0.0-9) H 02/05/17 03:10 Eosinophils % 2.0 % (0.0-3.0) 02/05/17 03:10 Basophils % 0.3 % (0.0-1.0) 02/05/17 03:10 Nucleated RBC % 0.0 k/mm3 (0-1) 02/05/17 03:10 Neutrophils # 6.5 K/mm3 (1.3-6.0) H 02/05/17 03:10 Lymphocytes # 1.9 k/mm3 (1.5-3.5) 02/05/17 03:10 Monocytes # 1.0 k/mm3 (0.0-1.0) 02/05/17 03:10 Eosinophils # 0.2 k/mm3 (0.0-0.7) 02/05/17 03:10 Absolute Basophils 0.0 k/mm3 (0.0-0.1) 02/05/17 03:10 pCO2 62.4 mmHg (32.0-45.0) H 02/05/17 13:03 pO2 76.6 mmHg (83.0-108.0) L 02/05/17 13:03 HCO3 38.0 mmol/L (21.0-28.0) H 02/05/17 13:03 Total CO2 40.0 mmol/L (19.0-24.0) H 02/05/17 13:03 Base Excess 11.1 mmol/L (-2.0-3.0) H 02/05/17 13:03 ABG pH 7.40 (7.35-7.45) 02/05/17 13:03 ABG O2 Sat (Measured) 95.0 % (94.0-98.0) 02/05/17 13:03 Sodium 129 mmol/L (132-142) L 02/05/17 03:10 Plasma Sodium 129 mmol/L (130-142) L 02/05/17 03:10 Potassium 4.1 mmol/L (3.4-4.6) 02/05/17 03:10 Chloride 88 mmol/L (97-106) L 02/05/17 03:10 Carbon Dioxide 43.9 mmol/L (24-32.6) H 02/05/17 03:10 Anion Gap 1.2 mmol/L (6.8-13.8) L 02/05/17 03:10 BUN 10 mg/dL (3-23) 02/05/17 03:10 Creatinine 0.83 mg/dL (0.4-1.4) 02/05/17 03:10 Est GFR (Non-Af Amer) 69 mL/min (60-130) 02/05/17 03:10 BUN/Creatinine Ratio 12.0 (9.0-21.6) 02/05/17 03:10 Random Glucose 109 mg/dL (70-110) 02/05/17 03:10 Lactic Acid, Venous 0.8 mmol/L (0.4-1.9) 02/05/17 03:10 Calcium 9.4 mg/dL (7.9-10.9) 02/05/17 03:10 Calcium Adj for Albumin 9.6 mg/dL (8.4-10.2) 02/05/17 03:10 Total Bilirubin 0.8 mg/dL (0.0-1.1) 02/05/17 03:10 AST 29 U/L (0-48) 02/05/17 03:10 ALT 35 U/L (19-67) 02/05/17 03:10 Alkaline Phosphatase 63 U/L (50-170) 02/05/17 03:10 Troponin I Less than 0.017 ng/ml (0.00-0.10) 02/05/17 03:10 C-Reactive Prot, Quant 1.6 mg/dL (0.0-0.9) H 02/05/17 04:50 B-Natriuretic Peptide 578 pg/mL (5-550) H 02/05/17 03:10 Total Protein 6.8 gm/dL (6.2-8.2) 02/05/17 03:10 Albumin 3.3 gm/dl (3.4-5.0) L 02/05/17 03:10 Procalcitonin Less than 0.05 ng/mL (0.05-0.50) L 02/05/17 04:50 Urine Color Pale yellow 02/05/17 03:36 Urine Appearance Slightly cloudy 02/05/17 03:36 Urine pH 7.5 pH (5.0-7.0) 02/05/17 03:36 Ur Specific Reading <=1.005 SP.GR. (1.005-1.010) 02/05/17 03:36 Urine Protein Negative mg/dL (NEGATIVE) 02/05/17 03:36 Urine Glucose (UA) Negative mg/dL (NEGATIVE) 02/05/17 03:36 Urine Ketones Negative mg/dL (NEGATIVE) 02/05/17 03:36 Urine Blood Negative /ul (NEGATIVE) 02/05/17 03:36 Urine Nitrate Positive (NEGATIVE) H 02/05/17 03:36 Urine Bilirubin Negative mg/dl (NEGATIVE) 02/05/17 03:36 Urine Urobilinogen Normal EU/dl (NORMAL) 02/05/17 03:36 Ur Leukocyte Esterase Negative /ul (NEGATIVE) 02/05/17 03:36 Urine RBC 0-5 /hpf (0-5) 02/05/17 03:36 Urine WBC 5-10 /hpf (0-5) H 02/05/17 03:36 Ur Epithelial Cells 0-5 /hpf (0-5) 02/05/17 03:36 Urine Bacteria 4+ (NONE) H 02/05/17 03:36 Urine Culture Comments Culture to follow 02/05/17 03:36 Assessment/Plan - Narrative Narrative: Analisa is an 86 yo female with: 1) Altered Mental Status - Differential includes Hyponatremia, UTI, hypercapnea , plus many other possibilities. The mentioned diagnosis are present or suspected. Hyponatremia is likely secondary to poor intake. Will treat with IVFs (gently), will give lasix prn if evidence of edema. UTI suspected on UA. Will culture and treat with Cipro. Hypercapnea likley chronic. ABG shows compensated as pH is normal. Will repeat ABG in a few hours. Patient is currently relaxed on nasal canula. 2) Hyponatremia - see above. Recheck Sodium in AM 3) UTI - see above 4) Chronic Respiratory Failure - Continue 3lpm via NC 5) Depression/Anxiety - Ativan prn. Will increase Cymbalta to 60mg daily. - Assessment/Plan (1) Hyponatremia Problem: Acute (2) Altered mental status Problem: Acute Qualifiers: Altered mental status type: disorientation Qualified Code(s): R41.0 - Disorientation, unspecified (3) Chronic respiratory failure Problem: Chronic Qualifiers: Respiratory failure complication: hypoxia and hypercapnia Qualified Code(s) : J96.11 - Chronic respiratory failure with hypoxia; J96.12 - Chronic respiratory failure with hypercapnia; J96.12 - Chronic respiratory failure with hypercapnia; J96.12 - Chronic respiratory failure with hypercapnia (4) COPD (chronic obstructive pulmonary disease) Problem: Acute Qualifiers: COPD type: emphysema
[2017-02-05] MEDS: ROSUVASTATIN CALCIUM 10 MG TABLET PO SCH (20:56)
[2017-02-05] MEDS: MONTELUKAST SODIUM 10 MG TABLET PO SCH (20:58)
[2017-02-06] MEDS: ACETAMINOPHEN 500 MG TABLET PO PRN (01:16)
[2017-02-06] MEDS: ALBUTEROL SULFATE 2.5 MG/0.5 ML VIAL.NEB IH PRN ×2 (01:30→18:52)
[2017-02-06] MEDS ORDERED: LORazepam 0.5 MG TABLET PO ONE (02:18)
[2017-02-06] MEDS: NORMAL SALINE 1,000 ML IV PRN ×2 (02:38→16:38)
[2017-02-06 10:06] LABS: Hematocrit 33.6 % (37.0-47.0); Hemoglobin 10.9 gm/dL (12.5-16.0); Mean Cell Volume 92.8 fl (78-100); Mean Corpuscular Hemoglobin 30.1 pg (27-31); Mean Corpuscular Hgb Conc 32.4 g/dl (32-36); Mean Platelet Volume 9.6 fl (6.0-9.5); Neutrophil # 8.3 K/mm3 (1.3-6.0); Neutrophil % 81.2 % (42-75.0); Platelet Count 156 K/mm3 (150-450); Red Blood Count 3.62 M/mm3 (4.2-5.4); Red Cell Distribution Width 12.2 % (11.5-14.0); White Blood Count 10.3 K/mm3 (4.0-10.5)
[2017-02-06] MEDS: LOSARTAN POTASSIUM 50 MG TABLET PO SCH (10:26)
[2017-02-06] MEDS: ASPIRIN 81 MG TABLET.DR PO SCH (10:27)
[2017-02-06] MEDS: SULFAMETHOXAZOLE/TRIMETHOPRIM 1 TAB TABLET PO SCH ×2 (10:28→20:13)
[2017-02-06] MEDS: TOLTERODINE TARTRATE 2 MG CAPSULE PO SCH (10:28)
[2017-02-06] MEDS: LACTOBACILLUS ACIDOPHILUS 100 CAP BTL PO SCH (10:29)
[2017-02-06] MEDS: CYANOCOBALAMIN 1,000 MCG TABLET PO SCH (10:30)
[2017-02-06] MEDS: FLUTICASONE PROPIONATE 120 SPRAY INHALER NS SCH ×2 (10:30→20:14)
[2017-02-06] MEDS: LORazepam 1 MG TABLET PO SCH ×2 (10:36→18:46)
[2017-02-06 10:38] LABS: Albumin * 2.9 gm/dl (3.4-5.0); Anion Gap 7.2 mmol/L (6.8-13.8); BUN/Creatinine Ratio 9.6 (9.0-21.6); Bilirubin, Total 0.5 mg/dL (0.0-1.1); Ca. Corrected For Albumin 9.1 mg/dL (8.4-10.2); Calcium * 8.5 mg/dL (7.9-10.9); Carbon Dioxide 36.7 mmol/L (24-32.6); Potassium 3.9 mmol/L (3.4-4.6); TSH * 1.526 uIU/mL (0.358-3.74); Total Protein 6.4 gm/dL (6.2-8.2)
[2017-02-06] MEDS: DULoxetine HCL 30 MG CAPSULE.SA PO SCH (11:00)
[2017-02-06] MEDS: MONTELUKAST SODIUM 10 MG TABLET PO SCH (20:13)
[2017-02-06] MEDS: ROSUVASTATIN CALCIUM 10 MG TABLET PO SCH (20:14)
[2017-02-07] MEDS: LORazepam 1 MG TABLET PO SCH ×3 (01:02→17:50)
[2017-02-07] MEDS: ALBUTEROL SULFATE 2.5 MG/0.5 ML VIAL.NEB IH PRN (01:07)
[2017-02-07] MEDS: NORMAL SALINE 1,000 ML IV PRN (09:43)
[2017-02-07] MEDS: TOLTERODINE TARTRATE 2 MG CAPSULE PO SCH (09:43)
[2017-02-07] MEDS: SULFAMETHOXAZOLE/TRIMETHOPRIM 1 TAB TABLET PO SCH ×2 (09:43→20:27)
[2017-02-07] MEDS: LOSARTAN POTASSIUM 50 MG TABLET PO SCH (09:44)
[2017-02-07] MEDS: DULoxetine HCL 30 MG CAPSULE.SA PO SCH (09:44)
[2017-02-07] MEDS: ASPIRIN 81 MG TABLET.DR PO SCH (09:44)
[2017-02-07] MEDS: CYANOCOBALAMIN 1,000 MCG TABLET PO SCH (09:45)
[2017-02-07] MEDS: FLUTICASONE PROPIONATE 120 SPRAY INHALER NS SCH ×2 (09:45→20:27)
[2017-02-07] MEDS: LACTOBACILLUS ACIDOPHILUS 100 CAP BTL PO SCH (09:46)
[2017-02-07] MEDS: ACETAMINOPHEN 500 MG TABLET PO PRN (10:04)
[2017-02-07 10:23] LABS: Hematocrit 32.4 % (37.0-47.0); Hemoglobin 10.8 gm/dL (12.5-16.0); Mean Cell Volume 90.8 fl (78-100); Mean Corpuscular Hemoglobin 30.3 pg (27-31); Mean Corpuscular Hgb Conc 33.3 g/dl (32-36); Mean Platelet Volume 9.4 fl (6.0-9.5); Neutrophil # 9.9 K/mm3 (1.3-6.0); Neutrophil % 78.9 % (42-75.0); Platelet Count 151 K/mm3 (150-450); Red Blood Count 3.57 M/mm3 (4.2-5.4); Red Cell Distribution Width 12.2 % (11.5-14.0); White Blood Count 12.5 K/mm3 (4.0-10.5)
[2017-02-07 10:35] LABS: BUN/Creatinine Ratio 8.3 (9.0-21.6); Bilirubin, Total 0.8 mg/dL (0.0-1.1); Ca. Corrected For Albumin 8.8 mg/dL (8.4-10.2); Calcium * 8.3 mg/dL (7.9-10.9); Carbon Dioxide 35.2 mmol/L (24-32.6); Potassium 4.2 mmol/L (3.4-4.6); Total Protein 6.8 gm/dL (6.2-8.2)
[2017-02-07] MEDS: KETOROLAC TROMETHAMINE 15 MG/ML VIAL IV PRN (15:24)
[2017-02-07] MEDS: MONTELUKAST SODIUM 10 MG TABLET PO SCH (20:26)
[2017-02-07] MEDS: ROSUVASTATIN CALCIUM 10 MG TABLET PO SCH (20:26)
[2017-02-08] MEDS: NORMAL SALINE 1,000 ML IV PRN ×2 (00:13→14:26)
[2017-02-08] MEDS: LORazepam 1 MG TABLET PO SCH ×3 (01:12→17:10)
[2017-02-08] MEDS: KETOROLAC TROMETHAMINE 15 MG/ML VIAL IV PRN ×2 (07:40→22:53)
[2017-02-08] MEDS: ASPIRIN 81 MG TABLET.DR PO SCH (08:42)
[2017-02-08] MEDS: LACTOBACILLUS ACIDOPHILUS 100 CAP BTL PO SCH (08:42)
[2017-02-08] MEDS: LOSARTAN POTASSIUM 50 MG TABLET PO SCH (08:42)
[2017-02-08] MEDS: SULFAMETHOXAZOLE/TRIMETHOPRIM 1 TAB TABLET PO SCH ×2 (08:42→20:10)
[2017-02-08] MEDS: CYANOCOBALAMIN 1,000 MCG TABLET PO SCH (08:43)
[2017-02-08] MEDS: DULoxetine HCL 30 MG CAPSULE.SA PO SCH (08:43)
[2017-02-08] MEDS: FLUTICASONE PROPIONATE 120 SPRAY INHALER NS SCH ×2 (08:43→20:10)
[2017-02-08] MEDS: TOLTERODINE TARTRATE 2 MG CAPSULE PO SCH (08:43)
--- NOTE | 2017-02-08 15:40 | PN ---
Subjective - Date and Time Seen Date: 02/08/17 Time: 15:00 Subjective Narrative: Patient states that she has been depressed since May 2016. states that she stews and worries all the time. He also describes her mood as grumpy. Objective Objective Narrative: Patient states that she was on Tranxene in the past for anxiety and it helped. States that she was changed to Paxil then Cymbalta. Does not feel that the Cymbalta has helped with mood, anxiety or pain. Complains of not sleeping well. Feels hopeless and worthless. Worries about health and . Worries that she may during the night and won't know until morning. Alternates from wanting to go home to wanting to go to a correction. Voices feelings of hopelessness and states that she should just go to hospice and . is pleasant and supportive. - Review of Systems Generalized/Overall Review: Reports: Weakness, Fatigue Musculoskeletal Complaints: Reports: Neck Pain Neurological: Reports: Anxiety, Depressed - Vitals Vitals: Last Vital Signs Temp 36.7 C 02/08/17 14:31 Pulse 87 02/08/17 14:31 Resp 18 02/08/17 14:31 BP 174/71 02/08/17 14:31 Pulse Ox 99 02/08/17 14:31 - Exam Constitutional: Present: Alert, Oriented x3, Cooperative, Elderly Eye contact: Present: cooperative, avoids eye contact Thoughts: Present: no apparent hallucination Assessment/Plan Plan Narrative: Discussed R/B/SE of medications. Will change Cymbalta to Sertraline 100 mg, start tomorrow. Continue Lorazepam as needed. Patient requesting something for sleep but due to COPD, I do not want to order anything that may suppress respiratory effort at this time. May schedule as a new patient with psychiatry clinic. - Problems/Diagnosis (1) Major depression Problem: Acute Qualifiers: Major depression recurrence: recurrent Active/Remission status: currently active Major depression episode severity: moderate Qualified Code(s): F33.1 - Major depressive disorder, recurrent, moderate
[2017-02-08 15:52] LABS: Hematocrit 30.6 % (37.0-47.0); Hemoglobin 10.3 gm/dL (12.5-16.0); Mean Cell Volume 90.3 fl (78-100); Mean Corpuscular Hemoglobin 30.4 pg (27-31); Mean Corpuscular Hgb Conc 33.7 g/dl (32-36); Mean Platelet Volume 9.4 fl (6.0-9.5); Neutrophil # 7.3 K/mm3 (1.3-6.0); Neutrophil % 81.6 % (42-75.0); Platelet Count 137 K/mm3 (150-450); Red Blood Count 3.39 M/mm3 (4.2-5.4); Red Cell Distribution Width 12.1 % (11.5-14.0); White Blood Count 8.9 K/mm3 (4.0-10.5)
[2017-02-08 16:21] LABS: Albumin * 2.8 gm/dl (3.4-5.0); Anion Gap 5.2 mmol/L (6.8-13.8); BUN/Creatinine Ratio 10.5 (9.0-21.6); Bilirubin, Total 0.6 mg/dL (0.0-1.1); Ca. Corrected For Albumin 9.1 mg/dL (8.4-10.2); Calcium * 8.5 mg/dL (7.9-10.9); Carbon Dioxide 34.2 mmol/L (24-32.6); Potassium 4.4 mmol/L (3.4-4.6); Total Protein 6.5 gm/dL (6.2-8.2)
[2017-02-08] MEDS ORDERED: FUROSEMIDE 10 MG/ML VIAL IV ONE (16:29)
[2017-02-08] MEDS: ROSUVASTATIN CALCIUM 10 MG TABLET PO SCH (20:10)
[2017-02-08] MEDS: MONTELUKAST SODIUM 10 MG TABLET PO SCH (20:11)
[2017-02-09] MEDS: LORazepam 1 MG TABLET PO SCH ×3 (02:15→17:41)
[2017-02-09] MEDS: NORMAL SALINE 1,000 ML IV PRN (04:47)
--- NOTE | 2017-02-09 08:00 | PN ---
Subjective - Date and Time Seen Date: 02/06/17 Time: 12:30 Subjective Narrative: Patient reports she wants to give up. Does not want to live. Does not want to eat. Objective - Vitals Vitals: Last Vital Signs Selected Entries 02/06/17 10:40 Temperature 37 C Pulse Rate 82 Respiratory 20 Rate Blood Pressure 191/76 O2 Sat by Pulse 99 Oximetry Oxygen Delivery Nasal Cannula Method Oxygen Flow 3 Rate - Abnormal Lab Findings Abnormal Lab Findings: Abnormal Lab Results - Exam Constitutional: Present: Somnolent, Elderly ENT Exam: Present: hearing grossly normal Respiratory: Present: lungs clear, decreased breath sounds Cardiovascular/Chest: Present: regular rate, rhythm, no murmur Abdomen: Present: Normal bowel sounds, soft, nontender, nondistended Assessment/Plan Plan Narrative: Analisa has severe depression and hyponatremia from lack of eating. Just recently started cymbalta to help. No improvement seen yet. Sodium 130, will give fluids as intake is poor. Patient wants hospice but unclear if this is the depression speaking. - Problems/Diagnosis (1) Hyponatremia Problem: Acute (2) Altered mental status Problem: Acute Qualifiers: Altered mental status type: disorientation Qualified Code(s): R41.0 - Disorientation, unspecified (3) Chronic respiratory failure Problem: Chronic Qualifiers: Respiratory failure complication: unspecified whether with hypoxia or hypercapnia Qualified Code(s): J96.10 - Chronic respiratory failure, unspecified whether with hypoxia or hypercapnia (4) COPD (chronic obstructive pulmonary disease) Problem: Chronic Qualifiers: COPD type: emphysema
--- NOTE | 2017-02-09 08:02 | PN ---
Subjective - Date and Time Seen Date: 02/08/17 Time: 12:15 Subjective Narrative: Patient does not want to talk. Objective - Vitals Vitals: Last Vital Signs Selected Entries 02/08/17 11:14 Temperature 36.8 C Pulse Rate 62 Respiratory 20 Rate Blood Pressure 175/56 O2 Sat by Pulse 98 Oximetry Oxygen Delivery Nasal Cannula Method Oxygen Flow 3 Rate - Abnormal Lab Findings Abnormal Lab Findings: Abnormal Lab Results 02/08/17 02/08/17 Range/Units 15:45 15:45 RBC 3.39 L (4.2-5.4) M/mm3 Hgb 10.3 L (12.5-16.0) gm/dL Hct 30.6 L (37.0-47.0) % Plt Count 137 L (150-450) K/mm3 Immature Gran % (Auto) 0.70 H (0.001-0.429) % Immature Gran # (Auto) 0.06 H (0.000-0.0310) K/mm3 Neutrophils % 81.6 H (42-75.0) % Lymphocytes % 8.1 L (20-51) % Neutrophils # 7.3 H (1.3-6.0) K/mm3 Lymphocytes # 0.7 L (1.5-3.5) k/mm3 Sodium 122 L (132-142) mmol/L Plasma Sodium 123 L (130-142) mmol/L Chloride 87 L (97-106) mmol/L Carbon Dioxide 34.2 H (24-32.6) mmol/L Anion Gap 5.2 L (6.8-13.8) mmol/L Random Glucose 138 H (70-110) mg/dL Albumin 2.8 L (3.4-5.0) gm/dl - Exam Constitutional: Present: Alert. Absent: Cooperative ENT Exam: Present: hearing grossly normal Respiratory: Present: no respiratory distress, decreased breath sounds Cardiovascular/Chest: Present: regular rate, rhythm, no murmur Abdomen: Present: Normal bowel sounds, soft, nontender, nondistended Assessment/Plan Plan Narrative: Analisa has severe depression and hyponatremia from lack of eating. Psych recommended stopping cymbalta and starting sertraline. Sodium 122 today. Will try and give lasix, although patient has been refusing this. Patient still wants to and request hospice. Family is not in agreement and it is difficult to stop trying to treat the depression as this may be the underlying cause to her wanting to . If the depression improves does Analisa still want to . - Problems/Diagnosis (1) Hyponatremia Problem: Acute (2) Altered mental status Problem: Acute Qualifiers: Altered mental status type: disorientation Qualified Code(s): R41.0 - Disorientation, unspecified (3) Chronic respiratory failure Problem: Chronic Qualifiers: Respiratory failure complication: unspecified whether with hypoxia or hypercapnia Qualified Code(s): J96.10 - Chronic respiratory failure, unspecified whether with hypoxia or hypercapnia (4) COPD (chronic obstructive pulmonary disease) Problem: Chronic Qualifiers: COPD type: emphysema
--- NOTE | 2017-02-09 08:02 | PN ---
Subjective - Date and Time Seen Date: 02/07/17 Time: 12:45 Subjective Narrative: Does not want to do anything. Does not want to eat. Wants to . No reported problems. Objective - Vitals Vitals: Last Vital Signs Selected Entries 02/07/17 09:02 Temperature 37.2 C Pulse Rate 94 Respiratory 12 Rate Blood Pressure 153/60 O2 Sat by Pulse 95 Oximetry Oxygen Delivery Nasal Cannula Method Oxygen Flow 3 Rate - Abnormal Lab Findings Abnormal Lab Findings: Abnormal Lab Results Sodium 125 - Exam Constitutional: Present: Somnolent, Elderly ENT Exam: Present: hearing grossly normal Respiratory: Present: lungs clear, decreased breath sounds Cardiovascular/Chest: Present: regular rate, rhythm, no murmur Abdomen: Present: Normal bowel sounds, soft, nontender, nondistended Assessment/Plan Plan Narrative: Analsia has severe depression and hyponatremia from lack of eating. Just recently started cymbalta to help. No improvement seen yet. Sodium 125 today and worsening, will adjust fluids. Will try lasix to remove free water. Will consult psych for help with depression. - Problems/Diagnosis (1) Major depression Problem: Chronic Qualifiers: Major depression recurrence: recurrent Active/Remission status: currently active Major depression episode severity: moderate Qualified Code(s): F33.1 - Major depressive disorder, recurrent, moderate (2) Hyponatremia Problem: Acute (3) Altered mental status Problem: Acute Qualifiers: Altered mental status type: disorientation Qualified Code(s): R41.0 - Disorientation, unspecified (4) Chronic respiratory failure Problem: Chronic Qualifiers: Respiratory failure complication: unspecified whether with hypoxia or hypercapnia Qualified Code(s): J96.10 - Chronic respiratory failure, unspecified whether with hypoxia or hypercapnia (5) COPD (chronic obstructive pulmonary disease) Problem: Chronic Qualifiers: COPD type: emphysema
[2017-02-09] MEDS: KETOROLAC TROMETHAMINE 15 MG/ML VIAL IV PRN (08:05)
--- NOTE | 2017-02-09 08:08 | PN ---
Subjective - Date and Time Seen Date: 02/09/17 Time: 12:36 Subjective Narrative: No concerns from patient. Still has poor oral intake. Wants to give up. Family trying to motivate patient to keep fighting depression. Objective - Vitals Vitals: Last Vital Signs Temp 36.6 C 02/09/17 03:46 Pulse 86 02/09/17 03:46 Resp 20 02/09/17 03:46 BP 173/65 02/09/17 03:46 Pulse Ox 98 02/09/17 03:46 - Abnormal Lab Findings Abnormal Lab Findings: Abnormal Lab Results 02/08/17 02/08/17 Range/Units 15:45 15:45 RBC 3.39 L (4.2-5.4) M/mm3 Hgb 10.3 L (12.5-16.0) gm/dL Hct 30.6 L (37.0-47.0) % Plt Count 137 L (150-450) K/mm3 Immature Gran % (Auto) 0.70 H (0.001-0.429) % Immature Gran # (Auto) 0.06 H (0.000-0.0310) K/mm3 Neutrophils % 81.6 H (42-75.0) % Lymphocytes % 8.1 L (20-51) % Neutrophils # 7.3 H (1.3-6.0) K/mm3 Lymphocytes # 0.7 L (1.5-3.5) k/mm3 Sodium 122 L (132-142) mmol/L Plasma Sodium 123 L (130-142) mmol/L Chloride 87 L (97-106) mmol/L Carbon Dioxide 34.2 H (24-32.6) mmol/L Anion Gap 5.2 L (6.8-13.8) mmol/L Random Glucose 138 H (70-110) mg/dL Albumin 2.8 L (3.4-5.0) gm/dl - Exam Constitutional: Present: Alert, Elderly ENT Exam: Present: hearing grossly normal Respiratory: Present: lungs clear, decreased breath sounds Cardiovascular/Chest: Present: regular rate, rhythm, no murmur Abdomen: Present: Normal bowel sounds, soft, nontender, nondistended Assessment/Plan Plan Narrative: Analisa has severe depression and hyponatremia from lack of eating. Started sertraline to help yesterday per psych recommendations. Family trying to motivate patient. - Problems/Diagnosis (1) Hyponatremia Problem: Acute (2) Altered mental status Problem: Acute Qualifiers: Altered mental status type: disorientation Qualified Code(s): R41.0 - Disorientation, unspecified (3) Chronic respiratory failure Problem: Chronic Qualifiers: Respiratory failure complication: unspecified whether with hypoxia or hypercapnia Qualified Code(s): J96.10 - Chronic respiratory failure, unspecified whether with hypoxia or hypercapnia (4) COPD (chronic obstructive pulmonary disease) Problem: Chronic Qualifiers: COPD type: emphysema
[2017-02-09 08:15] LABS: Hematocrit 33.6 % (37.0-47.0); Hemoglobin 11.1 gm/dL (12.5-16.0); Mean Cell Volume 89.4 fl (78-100); Mean Corpuscular Hemoglobin 29.5 pg (27-31); Mean Platelet Volume 9.8 fl (6.0-9.5); Neutrophil # 8.7 K/mm3 (1.3-6.0); Neutrophil % 79.7 % (42-75.0); Platelet Count 151 K/mm3 (150-450); Red Blood Count 3.76 M/mm3 (4.2-5.4); Red Cell Distribution Width 12.1 % (11.5-14.0); White Blood Count 10.9 K/mm3 (4.0-10.5)
[2017-02-09 08:27] LABS: Albumin * 2.9 gm/dl (3.4-5.0); BUN/Creatinine Ratio 11.4 (9.0-21.6); Bilirubin, Total 0.6 mg/dL (0.0-1.1); Ca. Corrected For Albumin 9.2 mg/dL (8.4-10.2); Calcium * 8.6 mg/dL (7.9-10.9); Total Protein 6.8 gm/dL (6.2-8.2)
[2017-02-09] MEDS: FLUTICASONE PROPIONATE 120 SPRAY INHALER NS SCH ×2 (09:08→20:24)
[2017-02-09] MEDS: SULFAMETHOXAZOLE/TRIMETHOPRIM 1 TAB TABLET PO SCH ×2 (09:54→20:24)
[2017-02-09] MEDS: TOLTERODINE TARTRATE 2 MG CAPSULE PO SCH (09:54)
[2017-02-09] MEDS: SERTRALINE HCL 100 MG TABLET PO SCH (09:54)
[2017-02-09] MEDS: CYANOCOBALAMIN 1,000 MCG TABLET PO SCH (09:56)
[2017-02-09] MEDS: LACTOBACILLUS ACIDOPHILUS 100 CAP BTL PO SCH (09:56)
[2017-02-09] MEDS: ASPIRIN 81 MG TABLET.DR PO SCH (09:56)
[2017-02-09] MEDS ORDERED: FUROSEMIDE 10 MG/ML VIAL IV ONE (11:30)
[2017-02-09 17:49] LABS: Anion Gap 2.4 mmol/L (6.8-13.8); BUN/Creatinine Ratio 12.8 (9.0-21.6); Calcium * 9.1 mg/dL (7.9-10.9); Estimated Creat Clear 46.6; Potassium 4.4 mmol/L (3.4-4.6)
[2017-02-09] MEDS: ROSUVASTATIN CALCIUM 10 MG TABLET PO SCH (20:25)
[2017-02-09] MEDS: MONTELUKAST SODIUM 10 MG TABLET PO SCH (20:25)
[2017-02-10] MEDS: LORazepam 1 MG TABLET PO SCH ×5 (01:31→19:38)
[2017-02-10 06:00] LABS: Anion Gap 3.4 mmol/L (6.8-13.8); Calcium * 8.8 mg/dL (7.9-10.9); Carbon Dioxide 39.8 mmol/L (24-32.6); Estimated Creat Clear 49.8; Potassium 4.2 mmol/L (3.4-4.6)
[2017-02-10] MEDS ORDERED: FUROSEMIDE 10 MG/ML VIAL IV ONE (08:08)
[2017-02-10] MEDS: ACETAMINOPHEN 500 MG TABLET PO PRN (08:17)
[2017-02-10] MEDS: TOLTERODINE TARTRATE 2 MG CAPSULE PO SCH ×2 (08:18→08:40)
[2017-02-10] MEDS: CYANOCOBALAMIN 1,000 MCG TABLET PO SCH ×2 (08:18→08:40)
[2017-02-10] MEDS: SERTRALINE HCL 100 MG TABLET PO SCH (08:18)
[2017-02-10] MEDS: ASPIRIN 81 MG TABLET.DR PO SCH ×2 (08:18→08:40)
[2017-02-10] MEDS: SULFAMETHOXAZOLE/TRIMETHOPRIM 1 TAB TABLET PO SCH ×3 (08:18→20:12)
[2017-02-10] MEDS: LACTOBACILLUS ACIDOPHILUS 100 CAP BTL PO SCH ×2 (08:19→08:40)
[2017-02-10] MEDS: FLUTICASONE PROPIONATE 120 SPRAY INHALER NS SCH ×2 (08:20→20:12)
[2017-02-10] MEDS: MORPHINE SULFATE 10 MG/0.5 ML SYRINGE PO PRN (14:25)
[2017-02-10] MEDS: KETOROLAC TROMETHAMINE 15 MG/ML VIAL IV PRN (15:27)
[2017-02-10] MEDS: MONTELUKAST SODIUM 10 MG TABLET PO SCH ×2 (19:39→20:12)
[2017-02-10] MEDS: ROSUVASTATIN CALCIUM 10 MG TABLET PO SCH ×2 (19:41→20:12)
[2017-02-11] MEDS: LORazepam 1 MG TABLET PO SCH ×3 (01:16→16:41)
--- NOTE | 2017-02-11 08:09 | PN ---
Subjective - Date and Time Seen Date: 02/10/17 Time: 12:30 Subjective Narrative: No improvement. Patient still ready to give up. Poor oral intake. Objective - Vitals Vitals: Last Vital Signs Selected Entries 02/10/17 10:47 Temperature 36.4 C L Pulse Rate 75 Respiratory 21 H Rate Blood Pressure 152/52 O2 Sat by Pulse 100 Oximetry Oxygen Delivery Nasal Cannula Method Oxygen Flow 3 Rate - Exam Constitutional: Present: Alert ENT Exam: Present: hearing grossly normal Respiratory: Present: lungs clear, decreased breath sounds Cardiovascular/Chest: Present: regular rate, rhythm, no murmur Eye contact: Present: avoids eye contact, uncooperative Assessment/Plan Plan Narrative: Analisa has severe depression and hyponatremia from lack of eating. Continue sertraline, although no improve yet, but just started two days ago. Sodium still too low to discharge. - Problems/Diagnosis (1) Major depression Problem: Chronic Qualifiers: Major depression recurrence: recurrent Active/Remission status: currently active Major depression episode severity: moderate Qualified Code(s): F33.1 - Major depressive disorder, recurrent, moderate (2) Hyponatremia Problem: Acute (3) Altered mental status Problem: Acute Qualifiers: Altered mental status type: disorientation Qualified Code(s): R41.0 - Disorientation, unspecified (4) Chronic respiratory failure Problem: Chronic Qualifiers: Respiratory failure complication: unspecified whether with hypoxia or hypercapnia Qualified Code(s): J96.10 - Chronic respiratory failure, unspecified whether with hypoxia or hypercapnia (5) COPD (chronic obstructive pulmonary disease) Problem: Chronic Qualifiers: COPD type: emphysema
[2017-02-11 08:18] LABS: Hematocrit 34.6 % (37.0-47.0); Hemoglobin 11.7 gm/dL (12.5-16.0); Mean Cell Volume 89.9 fl (78-100); Mean Corpuscular Hemoglobin 30.4 pg (27-31); Mean Corpuscular Hgb Conc 33.8 g/dl (32-36); Mean Platelet Volume 8.8 fl (6.0-9.5); Neutrophil # 6.8 K/mm3 (1.3-6.0); Neutrophil % 77.9 % (42-75.0); Platelet Count 187 K/mm3 (150-450); Red Blood Count 3.85 M/mm3 (4.2-5.4); Red Cell Distribution Width 12.3 % (11.5-14.0); White Blood Count 8.7 K/mm3 (4.0-10.5)
[2017-02-11 08:32] LABS: BUN/Creatinine Ratio 11.9 (9.0-21.6); Bilirubin, Total 0.5 mg/dL (0.0-1.1); Ca. Corrected For Albumin 9.8 mg/dL (8.4-10.2); Calcium * 9.3 mg/dL (7.9-10.9); Carbon Dioxide 41.3 mmol/L (24-32.6); Total Protein 6.9 gm/dL (6.2-8.2)
[2017-02-11] MEDS: ASPIRIN 81 MG TABLET.DR PO SCH (08:47)
[2017-02-11] MEDS: SULFAMETHOXAZOLE/TRIMETHOPRIM 1 TAB TABLET PO SCH ×3 (08:48→21:48)
[2017-02-11] MEDS: CYANOCOBALAMIN 1,000 MCG TABLET PO SCH (08:49)
[2017-02-11] MEDS: TOLTERODINE TARTRATE 2 MG CAPSULE PO SCH (08:49)
[2017-02-11] MEDS: LACTOBACILLUS ACIDOPHILUS 100 CAP BTL PO SCH (08:50)
[2017-02-11] MEDS: SERTRALINE HCL 100 MG TABLET PO SCH (08:50)
[2017-02-11] MEDS: FLUTICASONE PROPIONATE 120 SPRAY INHALER NS SCH ×3 (08:51→21:50)
[2017-02-11 09:07] LABS: Anion Gap 4.7 mmol/L (6.8-13.8)
[2017-02-11] MEDS: KETOROLAC TROMETHAMINE 15 MG/ML VIAL IV PRN (15:35)
[2017-02-11] MEDS: ROSUVASTATIN CALCIUM 10 MG TABLET PO SCH ×2 (20:47→21:49)
[2017-02-11] MEDS: MONTELUKAST SODIUM 10 MG TABLET PO SCH ×2 (20:47→21:48)
[2017-02-12] MEDS: KETOROLAC TROMETHAMINE 15 MG/ML VIAL IV PRN (01:58)
[2017-02-12] MEDS: LORazepam 1 MG TABLET PO SCH ×3 (01:59→17:52)
[2017-02-12] MEDS: MORPHINE SULFATE 10 MG/0.5 ML SYRINGE PO PRN ×2 (07:33→19:07)
--- NOTE | 2017-02-12 08:30 | PN ---
Subjective - Date and Time Seen Date: 02/11/17 Time: 12:45 Subjective Narrative: Family continues to help patient. She does not want help and is ready to give up. Ate a little better today. Objective - Vitals Vitals: Last Vital Signs Selected Entries 02/11/17 07:06 Temperature 36.4 C L Pulse Rate 71 Respiratory 21 H Rate Blood Pressure 160/50 O2 Sat by Pulse 100 Oximetry Oxygen Delivery Nasal Cannula Method Oxygen Flow 3 Rate - Abnormal Lab Findings Abnormal Lab Findings: Abnormal Lab Results 02/11/17 Range/Units 08:10 Sodium 124 L (132-142) mmol/L Plasma Sodium 125 L (130-142) mmol/L Potassium 5.0 H (3.4-4.6) mmol/L Chloride 83 L (97-106) mmol/L Carbon Dioxide 41.3 H (24-32.6) mmol/L Anion Gap 4.7 L (6.8-13.8) mmol/L Random Glucose 147 H D (70-110) mg/dL Albumin 3.0 L (3.4-5.0) gm/dl - Exam Constitutional: Present: Alert, Elderly ENT Exam: Present: hearing grossly normal Respiratory: Present: lungs clear, decreased breath sounds Cardiovascular/Chest: Present: regular rate, rhythm, no murmur Abdomen: Present: Normal bowel sounds, soft, nontender, nondistended Assessment/Plan Plan Narrative: Analisa has severe depression and hyponatremia from lack of eating. Maybe some improvement today and eating a little better. Sodium remains 124 and too low for discharge. Refusing lasix because it makes her get out of bed to go to bathroom. - Problems/Diagnosis (1) Major depression Problem: Chronic Qualifiers: Major depression recurrence: recurrent Active/Remission status: currently active Major depression episode severity: moderate Qualified Code(s): F33.1 - Major depressive disorder, recurrent, moderate (2) Hyponatremia Problem: Acute (3) Altered mental status Problem: Acute Qualifiers: Altered mental status type: disorientation Qualified Code(s): R41.0 - Disorientation, unspecified (4) Chronic respiratory failure Problem: Chronic Qualifiers: Respiratory failure complication: unspecified whether with hypoxia or hypercapnia Qualified Code(s): J96.10 - Chronic respiratory failure, unspecified whether with hypoxia or hypercapnia (5) COPD (chronic obstructive pulmonary disease) Problem: Chronic Qualifiers: COPD type: emphysema
[2017-02-12 08:56] LABS: BUN/Creatinine Ratio 10.6 (9.0-21.6); Bilirubin, Total 0.3 mg/dL (0.0-1.1); Ca. Corrected For Albumin 9.9 mg/dL (8.4-10.2); Calcium * 9.4 mg/dL (7.9-10.9); Carbon Dioxide 42.2 mmol/L (24-32.6); Potassium 5.2 mmol/L (3.4-4.6)
[2017-02-12] MEDS: FLUTICASONE PROPIONATE 120 SPRAY INHALER NS SCH ×2 (09:20→20:23)
[2017-02-12] MEDS: LACTOBACILLUS ACIDOPHILUS 100 CAP BTL PO SCH (09:20)
[2017-02-12] MEDS: SULFAMETHOXAZOLE/TRIMETHOPRIM 1 TAB TABLET PO SCH (09:20)
[2017-02-12] MEDS: TOLTERODINE TARTRATE 2 MG CAPSULE PO SCH (09:22)
[2017-02-12] MEDS: SERTRALINE HCL 100 MG TABLET PO SCH (09:22)
[2017-02-12] MEDS: CYANOCOBALAMIN 1,000 MCG TABLET PO SCH (09:23)
[2017-02-12] MEDS: ASPIRIN 81 MG TABLET.DR PO SCH (09:23)
[2017-02-12] MEDS ORDERED: FUROSEMIDE 10 MG/ML VIAL IV ONE (09:25)
[2017-02-12] MEDS: POLYETHYLENE GLYCOL 3350 119 GM BTL PO PRN (10:02)
[2017-02-12] MEDS: METHYLPHENIDATE HCL 5 MG TABLET PO SCH (15:21)
--- NOTE | 2017-02-12 15:46 | PN ---
Subjective - Date and Time Seen Date: 02/12/17 Time: 15:45 Subjective Narrative: Low energy today. Poor appetite. Wants to . No concerns. Objective - Vitals Vitals: Last Vital Signs Temp 36.7 C 02/12/17 15:34 Pulse 71 02/12/17 15:34 Resp 20 02/12/17 15:34 BP 163/60 02/12/17 15:34 Pulse Ox 98 02/12/17 15:34 - Abnormal Lab Findings Abnormal Lab Findings: Abnormal Lab Results 02/12/17 Range/Units 08:40 Sodium 122 L (132-142) mmol/L Plasma Sodium 123 L (130-142) mmol/L Potassium 5.2 H (3.4-4.6) mmol/L Chloride 83 L (97-106) mmol/L Carbon Dioxide 42.2 H (24-32.6) mmol/L Anion Gap 2.0 L (6.8-13.8) mmol/L Random Glucose 160 H (70-110) mg/dL Albumin 3.0 L (3.4-5.0) gm/dl - Exam Constitutional: Present: Alert, Elderly ENT Exam: Present: hearing grossly normal Respiratory: Present: lungs clear, decreased breath sounds Cardiovascular/Chest: Present: regular rate, rhythm, no murmur Abdomen: Present: Normal bowel sounds, soft, nontender, nondistended Assessment/Plan Plan Narrative: Analisa has severe depression and hyponatremia from lack of eating. No improvement with sertraline that was recommended by psychiatry. It is a difficult situation that she has obvious severe depression and wants to . She has chronic respiratory failure and has a reason for hospice consultation and she may be ready to , but it is unclear how much of this is being spoken from a state of depression and could resolve if the depression improves. Will start ritalin for stimulant effect and see if this will increase energy, motivation, and appetite. - Problems/Diagnosis (1) Major depression Problem: Chronic Qualifiers: Major depression recurrence: recurrent Active/Remission status: currently active Major depression episode severity: moderate Qualified Code(s): F33.1 - Major depressive disorder, recurrent, moderate (2) Hyponatremia Problem: Acute (3) Altered mental status Problem: Acute Qualifiers: Altered mental status type: disorientation Qualified Code(s): R41.0 - Disorientation, unspecified (4) Chronic respiratory failure Problem: Chronic Qualifiers: Respiratory failure complication: unspecified whether with hypoxia or hypercapnia Qualified Code(s): J96.10 - Chronic respiratory failure, unspecified whether with hypoxia or hypercapnia (5) COPD (chronic obstructive pulmonary disease) Problem: Chronic Qualifiers: COPD type: emphysema
[2017-02-12] MEDS: ACETAMINOPHEN 500 MG TABLET PO PRN (20:22)
[2017-02-12] MEDS: MONTELUKAST SODIUM 10 MG TABLET PO SCH (20:23)
[2017-02-12] MEDS: ROSUVASTATIN CALCIUM 10 MG TABLET PO SCH (20:23)
[2017-02-13] MEDS: LORazepam 1 MG TABLET PO SCH ×4 (03:08→23:57)
[2017-02-13] MEDS: SERTRALINE HCL 100 MG TABLET PO SCH (08:01)
[2017-02-13] MEDS: CYANOCOBALAMIN 1,000 MCG TABLET PO SCH (08:01)
[2017-02-13] MEDS: LACTOBACILLUS ACIDOPHILUS 100 CAP BTL PO SCH (08:01)
[2017-02-13] MEDS: ASPIRIN 81 MG TABLET.DR PO SCH (08:01)
[2017-02-13] MEDS: TOLTERODINE TARTRATE 2 MG CAPSULE PO SCH (08:01)
[2017-02-13] MEDS: FLUTICASONE PROPIONATE 120 SPRAY INHALER NS SCH ×2 (08:02→20:09)
[2017-02-13] MEDS: METHYLPHENIDATE HCL 5 MG TABLET PO SCH ×2 (08:10→16:54)
--- NOTE | 2017-02-13 14:57 | PN ---
Subjective - Date and Time Seen Date: 02/13/17 Time: 14:57 Subjective Narrative: per family, more alert and talkative today after being started on ritalin. Patient actually walked a couple of times with the help of a walker. Family is hoping she will make some progress after being discharged to [place] as she has some friends. Patient states she does not have much of an appetite and she is unable to sleep at nights. Has been depressed for a long time and is really not dressed since May. Unable to state what is causing her depression. Denies feeling confused in spite of hyponatremia. Objective - Review of Systems Generalized/Overall Review: Reports: Weakness Respiratory: Denies: Shortness of Breath Cardiac: Denies: Chest Pain, Edema Neurological: Reports: Anxiety, Depressed - Vitals Vitals: Last Vital Signs Temp 36.5 C 02/13/17 11:11 Pulse 79 02/13/17 14:53 Resp 20 02/13/17 14:53 BP 154/51 02/13/17 14:53 Pulse Ox 96 02/13/17 14:53 - Exam Constitutional: Present: Elderly - A and A x 3, on 3L O2, in NAD. ENT Exam: Present: hearing grossly normal, moist mucous membranes Respiratory: Present: no accessory muscle use, decreased breath sounds Cardiovascular/Chest: Present: regular rate, rhythm. Absent: tachycardia Abdomen: Present: Normal bowel sounds, soft, nontender Skin Exam: Present: warm/dry, pallor Neurologic: Present: depressed affect Assessment/Plan Plan Narrative: 1. Major depression and anxiety: Has been on multiple antidepressants and recently seen by Toshia Tiwari and switched to sertraline 100 mg by mouth daily. Also started on Ritalin 5 mg twice a day per Dr. Mari. Possible discharge to assisted on 02/16/17 for PT/OT. Consider CBT. 2. Chronic hyponatremia/ hypochloremia: Stable. 3. COPD: On 3 L of O2 and albuterol as needed. - Problems/Diagnosis (1) Major depressive disorder, recurrent episode Problem: Chronic Qualifiers: Major depression episode severity: unspecified Qualified Code(s): F33.9 - Major depressive disorder, recurrent, unspecified (2) Hyponatremia Problem: Chronic (3) Chronic respiratory failure Problem: Chronic Qualifiers: Respiratory failure complication: unspecified whether with hypoxia or hypercapnia Qualified Code(s): J96.10 - Chronic respiratory failure, unspecified whether with hypoxia or hypercapnia
[2017-02-13] MEDS: POLYETHYLENE GLYCOL 3350 119 GM BTL PO PRN (16:55)
[2017-02-13] MEDS: ACETAMINOPHEN 500 MG TABLET PO PRN (20:08)
[2017-02-13] MEDS: [UNRECOGNIZED DRUG - REMARK] PO SCH (20:09)
[2017-02-13] MEDS: MONTELUKAST SODIUM 10 MG TABLET PO SCH (20:09)
[2017-02-13] MEDS: ROSUVASTATIN CALCIUM 10 MG TABLET PO SCH (20:09)
[2017-02-13] MEDS ORDERED: guaiFENesin/DEXTROMETHORPHAN 118 ML BTL PO PRN (23:40)
[2017-02-14] MEDS: LORazepam 1 MG TABLET PO SCH ×3 (00:02→17:15)
[2017-02-14] MEDS: SERTRALINE HCL 100 MG TABLET PO SCH (09:54)
[2017-02-14] MEDS: TOLTERODINE TARTRATE 2 MG CAPSULE PO SCH (09:54)
[2017-02-14] MEDS: ASPIRIN 81 MG TABLET.DR PO SCH (09:54)
[2017-02-14] MEDS: METHYLPHENIDATE HCL 5 MG TABLET PO SCH ×2 (09:55→17:15)
[2017-02-14] MEDS: CYANOCOBALAMIN 1,000 MCG TABLET PO SCH (09:55)
[2017-02-14] MEDS: [UNRECOGNIZED DRUG - REMARK] PO SCH ×2 (09:55→21:02)
[2017-02-14] MEDS: FLUTICASONE PROPIONATE 120 SPRAY INHALER NS SCH ×2 (09:55→21:01)
[2017-02-14] MEDS: LACTOBACILLUS ACIDOPHILUS 100 CAP BTL PO SCH (09:55)
[2017-02-14] MEDS: ACETAMINOPHEN 500 MG TABLET PO PRN (19:03)
[2017-02-14] MEDS: MONTELUKAST SODIUM 10 MG TABLET PO SCH (21:01)
[2017-02-14] MEDS: ROSUVASTATIN CALCIUM 10 MG TABLET PO SCH (21:02)
[2017-02-14] MEDS: ALBUTEROL SULFATE 2.5 MG/0.5 ML VIAL.NEB IH PRN (23:07)
[2017-02-15] MEDS: LORazepam 1 MG TABLET PO SCH ×3 (04:04→16:21)
[2017-02-15 05:38] LABS: Hematocrit 33.7 % (37.0-47.0); Hemoglobin 11.1 gm/dL (12.5-16.0); Mean Cell Volume 90.8 fl (78-100); Mean Corpuscular Hemoglobin 29.9 pg (27-31); Mean Corpuscular Hgb Conc 32.9 g/dl (32-36); Mean Platelet Volume 9.4 fl (6.0-9.5); Neutrophil # 9.6 K/mm3 (1.3-6.0); Neutrophil % 85.8 % (42-75.0); Platelet Count 183 K/mm3 (150-450); Red Blood Count 3.71 M/mm3 (4.2-5.4); Red Cell Distribution Width 12.1 % (11.5-14.0); White Blood Count 11.2 K/mm3 (4.0-10.5)
[2017-02-15 05:50] LABS: ALT 41 U/L (19-67); AST 31 U/L (0-48); Albumin * 2.9 gm/dl (3.4-5.0); Alkaline Phosphatase * 73 U/L (50-170); BUN/Creatinine Ratio 15.6 (9.0-21.6); Bilirubin, Total 0.4 mg/dL (0.0-1.1); Blood Urea Nitrogen 10 mg/dL (3-23); Ca. Corrected For Albumin 9.6 mg/dL (8.4-10.2); Carbon Dioxide 41.6 mmol/L (24-32.6); Chloride 82 mmol/L (97-106); Glucose * 153 mg/dL (70-110); Potassium 4.9 mmol/L (3.4-4.6)
[2017-02-15 05:57] LABS: Sodium 119 mmol/L (132-142)
[2017-02-15] MEDS: ACETAMINOPHEN 500 MG TABLET PO PRN ×2 (08:09→16:21)
[2017-02-15] MEDS: METHYLPHENIDATE HCL 5 MG TABLET PO SCH ×2 (08:09→15:53)
[2017-02-15] MEDS: TOLTERODINE TARTRATE 2 MG CAPSULE PO SCH (08:10)
[2017-02-15] MEDS: POLYETHYLENE GLYCOL 3350 119 GM BTL PO PRN (08:10)
[2017-02-15] MEDS: FLUTICASONE PROPIONATE 120 SPRAY INHALER NS SCH ×2 (08:10→21:38)
[2017-02-15] MEDS: CYANOCOBALAMIN 1,000 MCG TABLET PO SCH (08:10)
[2017-02-15] MEDS: ASPIRIN 81 MG TABLET.DR PO SCH (08:10)
[2017-02-15] MEDS: SERTRALINE HCL 100 MG TABLET PO SCH (08:11)
[2017-02-15] MEDS: [UNRECOGNIZED DRUG - REMARK] PO SCH ×2 (08:11→21:39)
[2017-02-15] MEDS: LACTOBACILLUS ACIDOPHILUS 100 CAP BTL PO SCH (08:11)
--- NOTE | 2017-02-15 16:59 | PN ---
Subjective - Date and Time Seen Date: 02/14/17 Time: 13:00 Subjective Narrative: General condition remains unchanged. has poor appetite and does not want to ambulate. Objective - Review of Systems Generalized/Overall Review: Reports: Weakness - lack of appetite. Cardiac: Denies: Chest Pain, Edema Musculoskeletal Complaints: Reports: Back Pain Neurological: Reports: Anxiety, Depressed - Vitals Vitals: Last Vital Signs Temp 36.7 C 02/15/17 12:01 Pulse 78 02/15/17 12:01 Resp 16 02/15/17 12:01 BP 133/49 02/15/17 12:01 Pulse Ox 99 02/15/17 12:01 - Abnormal Lab Findings Abnormal Lab Findings: Lab Results - Exam Constitutional: Present: Elderly - on 3L O2 , A and OX 3 ENT Exam: Present: hearing grossly normal, moist mucous membranes Neck: Present: normal inspection, trachea midline Respiratory: Present: no accessory muscle use, decreased breath sounds - at bases Cardiovascular/Chest: Present: regular rate, rhythm, systolic murmur. Absent: tachycardia - Plan she is wanting to walk very slowly Extremity: Present: normal range of motion, no pedal edema Assessment/Plan - Problems/Diagnosis (1) Major depressive disorder, recurrent episode Problem: Chronic Qualifiers: Major depression episode severity: unspecified Qualified Code(s): F33.9 - Major depressive disorder, recurrent, unspecified Narrative: Continue sertraline 100 mg PO daily and ritalin 5 mg PO twice a day. consider CBT. No suicide ideation. (2) Hyponatremia Problem: Chronic Narrative: monitor labs - check cbc and cmp on 02/15/17. (3) Chronic respiratory failure Problem: Chronic Qualifiers: Respiratory failure complication: unspecified whether with hypoxia or hypercapnia Qualified Code(s): J96.10 - Chronic respiratory failure, unspecified whether with hypoxia or hypercapnia Narrative: stable. no resp c/o. continue O2 at 3L , and resp Rx as needed.
--- NOTE | 2017-02-15 17:02 | PN ---
Subjective - Date and Time Seen Date: 02/15/17 Time: 17:00 Subjective Narrative: Patient continues to lie in bed, very depressed, lethargic, poor appetite. Objective - Review of Systems Generalized/Overall Review: Reports: Weakness Respiratory: Denies: Shortness of Breath, Orthopnea Cardiac: Denies: Chest Pain, Edema Abdominal: Reports: Other - poor appetite.. Denies: Nausea, Vomiting Neurological: Reports: Anxiety, Depressed - Vitals Vitals: Last Vital Signs Temp 36.7 C 02/15/17 12:01 Pulse 78 02/15/17 12:01 Resp 16 02/15/17 12:01 BP 133/49 02/15/17 12:01 Pulse Ox 99 02/15/17 12:01 - Abnormal Lab Findings Abnormal Lab Findings: Laboratory Tests 02/15/17 05:25 WBC 11.2 H Hgb 11.1 L Hct 33.7 L Plt Count 183 02/15/17 05:25 Plasma Sodium 120 L Potassium 4.9 H Chloride 82 L Carbon Dioxide 41.6 H BUN 10 Creatinine 0.64 Est GFR (Non-Af Amer) 94 D Random Glucose 153 H Calcium Adj for Albumin 9.6 Total Bilirubin 0.4 AST 31 ALT 41 Alkaline Phosphatase 73 Total Protein 7.0 Albumin 2.9 L - Exam Constitutional: Present: Elderly - cooperative, looks chronically ill, on O2. ENT Exam: Present: hearing grossly normal, moist mucous membranes Respiratory: Present: no accessory muscle use, decreased breath sounds - at bases. Cardiovascular/Chest: Present: regular rate, rhythm. Absent: tachycardia Abdomen: Present: Normal bowel sounds, soft, nontender Skin Exam: Present: warm/dry, pallor Assessment/Plan Plan Narrative: Patient fails to respond to many antidepressants and does not want to eat/ walk. She was recently started on sertraline 100 mg daily after being seen by Toshia Tiwari. Continue current treatment. - Problems/Diagnosis (1) Chronic respiratory failure Problem: Chronic Qualifiers: Respiratory failure complication: unspecified whether with hypoxia or hypercapnia Qualified Code(s): J96.10 - Chronic respiratory failure, unspecified whether with hypoxia or hypercapnia (2) Major depressive disorder, recurrent episode Problem: Chronic Qualifiers: Major depression episode severity: severe Psychotic features: without psychotic features Qualified Code(s): F33.2 - Major depressive disorder, recurrent severe without psychotic features (3) Hyponatremia Problem: Chronic
[2017-02-15] MEDS: MONTELUKAST SODIUM 10 MG TABLET PO SCH (19:07)
[2017-02-15] MEDS: ALBUTEROL SULFATE 2.5 MG/0.5 ML VIAL.NEB IH PRN (19:14)
[2017-02-15] MEDS: ROSUVASTATIN CALCIUM 10 MG TABLET PO SCH (21:38)
[2017-02-16] MEDS: LORazepam 1 MG TABLET PO SCH ×3 (00:39→16:10)
[2017-02-16] MEDS: ALBUTEROL SULFATE 2.5 MG/0.5 ML VIAL.NEB IH PRN ×3 (00:55→16:34)
[2017-02-16] MEDS: MORPHINE SULFATE 10 MG/0.5 ML SYRINGE PO PRN (06:55)
[2017-02-16] MEDS: LACTOBACILLUS ACIDOPHILUS 100 CAP BTL PO SCH (09:27)
[2017-02-16] MEDS: ASPIRIN 81 MG TABLET.DR PO SCH (09:27)
[2017-02-16] MEDS: SERTRALINE HCL 100 MG TABLET PO SCH (09:27)
[2017-02-16] MEDS: CYANOCOBALAMIN 1,000 MCG TABLET PO SCH (09:28)
[2017-02-16] MEDS: FLUTICASONE PROPIONATE 120 SPRAY INHALER NS SCH ×3 (09:28→20:50)
[2017-02-16] MEDS: [UNRECOGNIZED DRUG - REMARK] PO SCH ×2 (09:28→20:50)
[2017-02-16] MEDS: TOLTERODINE TARTRATE 2 MG CAPSULE PO SCH (09:28)
[2017-02-16] MEDS: METHYLPHENIDATE HCL 5 MG TABLET PO SCH ×2 (09:31→16:10)
[2017-02-16] MEDS: MONTELUKAST SODIUM 10 MG TABLET PO SCH (19:10)
--- NOTE | 2017-02-16 20:22 | PN ---
Subjective - Date and Time Seen Date: 02/16/17 Time: 20:00 Subjective Narrative: Pt examined and she is in a somnolent state. Family members involving pt's son and daughter in-law are at bedside and wanted to discuss pt's general/overall prognosis. They are worried about pt's lack of good progress, poor appetite, refusing to eat, not being able to walk and sleeping all the time. They would like to de-escalate medical treatments and transition to comfort cares measures with in-house hospice vs [facility] with hospice. Tylor and his sister state they will talk to pt's spouse about the need to agree to changing goals of treatment/care and will get back to attending PCP in am. He does not think pt's spouse will have any objection to their plan/thoughts. Objective - Vitals Vitals: Last Vital Signs Temp 36.4 C L 02/16/17 18:17 Pulse 79 02/16/17 18:17 Resp 20 02/16/17 18:17 BP 114/42 02/16/17 18:17 Pulse Ox 98 02/16/17 18:17 - Exam Constitutional: Present: Somnolent ENT Exam: Present: dry mucous membranes Neck: Present: non-tender Respiratory: Present: decreased breath sounds Cardiovascular/Chest: Present: regular rate, rhythm Abdomen: Present: Normal bowel sounds, soft, nontender /Rectal: Present: Exam deferred Extremity: Present: normal range of motion Skin Exam: Present: warm/dry, no cyanosis Lymphatic: Present: no adenopathy Neurologic: Absent: alert Appearance: Present: impaired insight Thoughts: Present: no apparent hallucination Assessment/Plan Plan Narrative: Mrs. Bonner was admitted on 02/05/17. She was found to have hyponatremia and appeared severely depressed. She did not want to continue living and preferred to go to hospice. She had recently been started on Cymbalta for her depression. Her hyponatremia was felt to be hypovolemic due to poor oral intake and she received treatment with gentle IVF hydration. However, her hyponatremia has persisted despite several attempts of treatment with IVF & lasix. She was evaluated by Psychiatry. Cymbalta was discontinued and she was started on Sertraline. However, family reports that she continues to have no appetite, refuses to eat, does not want to engage in any activity, and sleeps all the time. Her refusal to eat is worsening her hyponatremic state and continued hyponatremia is associated with increased mortality. Her depression continues to cause decline in function and impairs her cognition and along with her medical problems: chronic resp. failure & COPD, she is at risk for poor motivation and adherence for rehabilitation and treatment. Family have expressed their wishes about not wanting to escalate any medical treatment due to poor/slow progress and pt's initial desire for hospice care. Will let pcp discuss with them again in a.m about goals of care once they talk to pt's spouse. - Problems/Diagnosis (1) Hyponatremia Problem: Chronic (2) Major depressive disorder, recurrent episode Problem: Chronic Qualifiers: Major depression episode severity: unspecified Qualified Code(s): F33.9 - Major depressive disorder, recurrent, unspecified (3) Altered mental status Problem: Acute Qualifiers: Altered mental status type: disorientation Qualified Code(s): R41.0 - Disorientation, unspecified (4) CHF (congestive heart failure) Problem: Acute (5) Acute and chronic respiratory failure with hypoxia Problem: Acute (6) Major depression Problem: Chronic Qualifiers: Major depression recurrence: recurrent Active/Remission status: currently active Major depression episode severity: moderate Qualified Code(s): F33.1 - Major depressive disorder, recurrent, moderate (7) Chronic respiratory failure Problem: Chronic Qualifiers: Respiratory failure complication: unspecified whether with hypoxia or hypercapnia Qualified Code(s): J96.10 - Chronic respiratory failure, unspecified whether with hypoxia or hypercapnia (8) COPD (chronic obstructive pulmonary disease) Problem: Chronic Qualifiers: COPD type: emphysema
[2017-02-16] MEDS: ROSUVASTATIN CALCIUM 10 MG TABLET PO SCH (20:50)
[2017-02-17] MEDS: LORazepam 1 MG TABLET PO SCH (00:17)
[2017-02-17 05:37] LABS: Hematocrit 37.9 % (37.0-47.0); Hemoglobin 12.1 gm/dL (12.5-16.0); Mean Cell Volume 93.3 fl (78-100); Mean Corpuscular Hemoglobin 29.8 pg (27-31); Mean Corpuscular Hgb Conc 31.9 g/dl (32-36); Mean Platelet Volume 9.2 fl (6.0-9.5); Neutrophil # 9.2 K/mm3 (1.3-6.0); Neutrophil % 81.3 % (42-75.0); Platelet Count 191 K/mm3 (150-450); Red Blood Count 4.06 M/mm3 (4.2-5.4); White Blood Count 11.3 K/mm3 (4.0-10.5)
[2017-02-17 05:53] LABS: BUN/Creatinine Ratio 22.1 (9.0-21.6); Blood Urea Nitrogen 15 mg/dL (3-23); Calcium * 9.6 mg/dL (7.9-10.9); Chloride 84 mmol/L (97-106); Estimated Creat Clear 53.4; Glucose * 132 mg/dL (70-110); Potassium 5.6 mmol/L (3.4-4.6); Sodium 127 mmol/L (132-142)
[2017-02-17 06:11] LABS: Carbon Dioxide 49.7 mmol/L (24-32.6)
[2017-02-17 06:33] VITALS: BP 159/58
[2017-02-17] MEDS: MORPHINE SULFATE 10 MG/0.5 ML SYRINGE PO PRN (07:13)
--- NOTE | 2017-02-17 19:38 | DS ---
Discharge Summary - Provider Primary Care Provider: Narciso Mari Admitting Clinician: Narciso Mari Attending Physician on Admission: Narciso Mari Pronouncing Clinician: Catherine Bobo - Date and Time Date of : 02/17/17 Time of : : - Diagnosis/Cause of (1) Hyponatremia Problems: Acute (2) Major depressive disorder, recurrent episode Problems: Chronic (3) Altered mental status Problems: Acute (4) CHF (congestive heart failure) Problems: Acute (5) Acute and chronic respiratory failure with hypoxia Problems: Acute (6) Major depression Problems: Chronic (7) Chronic respiratory failure Problems: Chronic (8) COPD (chronic obstructive pulmonary disease) Problems: Chronic - Summary Details (narrative): Mrs. Bonner was admitted on 02/05/17. She was found to have hyponatremia and appeared severely depressed. She did not want to continue living and preferred to go to hospice. She had recently been started on Cymbalta for her depression. Her hyponatremia was felt to be hypovolemic due to poor oral intake and she received treatment with gentle IVF hydration. However, her hyponatremia persisted despite several attempts of treatment with IVF & lasix. She was evaluated by Psychiatry. Cymbalta was discontinued and she was started on Sertraline. However, family were concerned about lack of progress and because she continued to have no appetite, refused to eat, did not want to engage in any activity, and slept all the time. Her refusal to eat was felt/thought to be worsening her hyponatremic state and continued hyponatremia is associated with increased mortality. Her depression continued and did not improve despite altering treatment and this was felt to cause her further decline in function & impairing her cognition. Given her psychiatric issues along with her medical problems: chronic resp. failure & COPD, she was at increased risk for poor motivation and adherence for rehabilitation and treatment. Family had expressed their wishes about not wanting to escalate any medical treatment due to poor/ slow progress and pt's initial desire for hospice care while still in a state of making informed consent. On the morning hours of 02/17, pt became pale and was noted to have agonal breathing. Daughter Liliana was at bedside and requested attending rn that her mother be placed on comfort care measures. She was given Morphine to alleviate her increased respiratory effort. I spoke to Liliana to verify their wishes as a family and she confirmed that they had agreed on comfort measures. She passed on 02/17 and TOD was at 07.27 with cause of being complications from hyponatremia. Procedures Performed: none - Additional Data Confirmation of as documented by pronouncing clinician: no pulse, no respirations, no heart sounds, pupils fixed and dilated Family: at bedside Attending/PCP notified: No Was code activated: No Autopsy requested: No Credit Representative notified: No [employer] notified: Yes
== END 2017-02-17 14:50 | disposition expired | DRG 641 ==
LOC: ER 02:41 → MS 06:50
PROVIDERS: ADMIT Nurse Practitioner; ATTEND Family Medicine
PROC: 0T9B7ZZ Drainage of Bladder, Via Natural or Artificial Opening (ICD-10-PCS; principal; 2017-02-05)
PROC: 4A033R1 Measurement of Arterial Saturation, Peripheral, Percutaneous Approach (ICD-10-PCS; 2017-02-05)
DX: E87.1 Hypo-osmolality and hyponatremia (principal); J96.11 Chronic respiratory failure with hypoxia; J96.12 Chronic respiratory failure with hypercapnia; F33.1 Major depressive disorder, recurrent, moderate; J43.9 Emphysema, unspecified; R41.0 Disorientation, unspecified; F17.210 Nicotine dependence, cigarettes, uncomplicated; Z99.81 Dependence on supplemental oxygen
CPT/HCPCS: 36415; 36600; 51701; 70450; 71010; 71045; 80048; 80053; 81001; 82803; 83519; 83605; 83880; 84145; 84443; 84484; 85025; 86140; 87077; 87086; 87186; 92526; 92610; 93005; 94640; 94660; 94664; 96374; 97110; 97116; 97162; 97165; 97530; 99285